=== PATIENT | male | born 1960 | race Caucasian/White ===

== ENCOUNTER 2019-10-09 08:30 | Outpatient (CLI) | payer BC, SELFPAY ==
--- NOTE | 2019-10-09 08:41 | XR_ITS ---
WS: [id number] PROCEDURE: XR chest 2V* [id number] CLINICAL INFORMATION: COUGH,DYSPNEA COMPARISON: None. FINDINGS: Heart: Normal cardiac silhouette. Lungs: Moderate chronic emphysematous changes. Small right pleural effusion with slight atelectasis r ight lung base. Recommend correlation for right lower lobe pneumonia. Recommend follow-up to resoluti on. This can be further evaluated with chest CT. Mild interstitial thickening right lung likely due t o edema. Left lung is well aerated. Bones: Normal visualized bony structures. XR/XR chest 2V* [id number] IMPRESSION: 1. Small right pleural effusion with slight atelectasis right lung base. 2. Correlation for right lower lobe pneumonia. This can be further evaluated w ith chest CT. Recommend follow-up to resolution. 3. Mild interstitial thickening right lung
== END 2019-10-09 08:31 | disposition home or self-care (01) ==
PROVIDERS: Family Provider Family Medicine; PCP Family Medicine; Visit Provider Family Medicine
DX: R05 Cough (principal); R06.02 Shortness of breath; J90 Pleural effusion, not elsewhere classified; J98.11 Atelectasis; J18.9 Pneumonia, unspecified organism
CPT/HCPCS: 71046

== ENCOUNTER → 2019-10-30 09:53 | Outpatient (BNVA) | payer BC, SELFPAY | PROVIDERS: Family Provider Family Medicine; PCP Family Medicine; Visit Provider Internal Medicine | DX: Z20.828 Contact with and (suspected) exposure to other viral communicable diseases (principal); Z11.59 Encounter for screening for other viral diseases | CPT/HCPCS: 87635 ==

== ENCOUNTER 2019-11-04 09:57 | Outpatient (CLI) | payer BC, SELFPAY ==
--- NOTE | 2019-11-04 11:12 | PFTS_ITS ---
Date of Study:11/04/19 Date of Dictation: MECHANICS: Forced vital capacity (FVC) is reduced. Forced expiratory volume in one second (FEV1) is reduced. FEV1/FVC is normal. FLOW VOLUME LOOP: Narrow. LUNG VOLUMES: Total lung capacity (TLC) is reduced. Residual volume (RV) is normal. DIFFUSING CAPACITY FOR CARBON MONOXIDE: Moderately reduced. INTERPRETATION: The pulmonary function tests are consistent with severe restriction. The presence of severe restriction with relatively reserved residual volume might indicate neuromuscular weakness. However, parenchymal lung disease cannot be ruled out. Lung volumes are consistent with restrictive lung disease. Gas exchange (DLCO) is moderately reduced. MTDD
== END 2019-11-04 09:58 | disposition home or self-care (01) ==
LOC: RT 10:04
PROVIDERS: PCP Family Medicine; Visit Provider Family Medicine
DX: R05 Cough (principal); R06.02 Shortness of breath
CPT/HCPCS: 94010; 94060; 94729

== ENCOUNTER 2019-11-11 16:23 | Outpatient (CLI) | payer BC, SELFPAY ==
--- NOTE | 2019-11-11 18:34 | XR_ITS ---
WS: [id number] PA and lateral chest, 11/11/2019 Clinical Data: Pleural effusion Comparison: PA and lateral chest, 10/09/2019. Findings: There is still a small right pleural effusion. The heart is slightly enlarged. There is int erstitial thickening which may be secondary to pulmonary vascular congestion. No nodules or masses ar e seen. The aortic arch and descending aorta show tortuosity. XR/XR chest 2V* [id number] Impression: 1. No change in small right effusion. 2. No change in interstitial lung thickening. 3. Atherosclerosis.
== END 2019-11-11 16:24 | disposition home or self-care (01) ==
LOC: RAD 16:26
PROVIDERS: PCP Family Medicine; Visit Provider Internal Medicine Pulmonary Disease
DX: J90 Pleural effusion, not elsewhere classified (principal); I70.90 Unspecified atherosclerosis
CPT/HCPCS: 71046

== ENCOUNTER 2019-11-20 11:23 | Outpatient (CLI) | payer BC, SELFPAY ==
--- NOTE | 2019-11-20 11:45 | USCV_ITS ---
Orville Jang Age: 59 Gender: M : 1960 Exam Date: 11/20/2019 11:42 Ordering Phys: Jaylon Marlow MD Technologist: Tram Cisse Exam Location: [facility] [place] Indication: SOB BP: 130 / 70 HR: 76 Rhythm: Sinus Technical Quality: MEASUREMENTS (Male / Female) Normal Values 2D ECHO LV Diastolic Diameter PLAX 3.5 cm 4.2 - 5.9 / 3.9 - 5.3 cm LV Systolic Diameter PLAX 2.5 cm LV Chamber Size 4.3 cm IVS Diastolic Thickness 0.9 cm 0.6 - 1.0 / 0.6 - 0.9 cm IVS Systolic Thickness 1.3 cm LVPW Diastolic Thickness 1.5 cm 0.6 - 1.0 / 0.6 - 0.9 cm LVPW Systolic Thickness 1.8 cm RV Chamber Size 2.5 cm LVOT Diameter 2.0 cm LV Ejection Fraction 2D Teich 56.1 % LV Ejection Fraction MOD 2C 70.2 % LV Ejection Fraction 2C AL 71.4 % LA Diameter 2.7 cm LA Width 3.5 cm LA Height 3.7 cm RA Width 3.4 cm RA Height 3.6 cm Aorta at Sinotubular Diameter 2.9 cm M-MODE LV Diastolic Diameter MM 4.1 cm 4.2 - 5.9 / 3.9 - 5.3 cm LV Systolic Diameter MM 2.8 cm LV Ejection Fraction MM Teich 61.2 % IVS Diastolic Thickness MM 0.8 cm 0.6 - 1.0 / 0.6 - 0.9 cm IVS Systolic Thickness MM 1.5 cm LVPW Diastolic Thickness MM 1.3 cm 0.6 - 1.0 / 0.6 - 0.9 cm LVPW Systolic Thickness MM 1.7 cm RV Diastolic Diameter MM 1.5 cm Aortic Annulus Diameter 3.5 cm LA Ao Ratio MM 0.8 MV E Point Septal Separation 0.6 cm DOPPLER AV Peak Velocity 101.0 cm/s LVOT Peak Velocity 68.0 cm/s AV Area Cont Eq vti 2.4 cm squared AV Area Cont Eq pk 2.2 cm squared MV Area PHT 3.7 cm squared Mitral E to A Ratio 0.8 MV E' Velocity 9.0 cm/s Mitral E to MV E' Ratio 7.0 Mitral E to LV E' Lateral Ratio 7.4 Mitral E to LV E' Septal Ratio 6.8 TR Peak Velocity 156.0 cm/s TR Peak Gradient 9.7 mmHg TR Mean Velocity 111.6 cm/s TR Mean Gradient 5.7 mmHg TR Velocity Time Integral 42.8 cm TV Peak E Velocity 53.0 cm/s Right Atrial Pressure 3.0 mmHg Pulmonary Artery Systolic Pressu 12.7 mmHg PV Peak Velocity 51.0 cm/s RV Acceleration Time 0.1 s RV Ejection Time 0.4 s RV AcT/ET 0.3 FINDINGS Left Ventricle Normal left ventricular size and wall thickness. LV systolic function is borderline reduced with EF of 45 to 50%. Mild global hypokinesis is noted. Normal left ventricular wall thickness. Grade 1 diastolic dysfunction is present. Right Ventricle The right ventricle is normal in size and function. Right Atrium The right atrium is normal in size. Left Atrium The left atrium is normal in size. Mitral Valve Structurally normal mitral valve without significant stenosis or prolapse. There is no mitral regurgitation. Aortic Valve Structurally normal aortic valve without significant sclerosis or stenosis. There is no aortic regurgitation. Tricuspid Valve Structurally normal tricuspid valve without significant stenosis or regurgitation. Insufficient TR jet to calculate RVSP. IVC is not well-visualized. Pulmonic Valve Structurally normal pulmonic valve without significant stenosis. There is mild pulmonic regurgitation. Pericardium Normal pericardium without effusion. Aorta Normal ascending aorta dimension. CONCLUSIONS This is technically limited study. Grossly LV systolic function is borderline reduced with EF of 45 to 50%. Grade 1 diastolic dysfunction is present. Mitral and aortic valves are normal. Clarence Shields MD (Electronically Signed) Final Date: 25 November 2019 11:45 S
--- NOTE | 2019-11-20 13:00 | CTR_ITS ---
PROCEDURE INFORMATION: Exam: CT Chest Without Contrast Exam date and time: 11/20/2019 11:28 AM Age: 59 years old Clinical indication: Shortness of breath; Patient HX: Exertional SOB for months; Additional info: Rule out interstitial lung disease TECHNIQUE: Imaging protocol: Computed tomography of the chest without contrast. Radiation optimization: All CT scans at this facility use at least one of these dose optimization techniques: automated exposure control; mA and/or kV adjustment per patient size (includes targeted exams where dose is matched to clinical indication); or iterative reconstruction. COMPARISON: CR XR chest 2V* [id number] 11/11/2019 6:43 PM RADIATION DOSE METRICS: Total DLP (mGy-cm): 259.99 FINDINGS: Lungs: Predominantly peripheral reticulonodular opacities throughout both lungs. Appearance nonspecific and differential diagnosis is extensive including some type of interstitial pneumonitis/atypical pneumonia, drug induced pulmonary disease, connective tissue disorders such as scleroderma, idiopathic pulmonary hemosiderosis, sarcoidosis, histiocytosis X, and lymphangitic metastases if history of malignancy. Areas of chronic bronchiectasis in the lung bases (right greater than left). Pleural space: Unremarkable. No pneumothorax. No pleural effusion. Heart: Unremarkable. No cardiomegaly. No pericardial effusion. Aorta: Unremarkable. No aortic aneurysm. Lymph nodes: Several 1.2 cm or smaller mediastinal lymph nodes, nonspecific. Bones/joints: Unremarkable. No acute fracture. Soft tissues: Unremarkable. CT/CT chest wo con [id number] IMPRESSION: 1.) Predominantly peripheral reticulonodular opacities throughout both lungs as discussed above. 2.) Areas of chronic bronchiectasis in the lung bases. Radiation Dose CTDIVOL = (mGy): DLP = 259.99 (mGy-cm)
== END 2019-11-20 11:24 | disposition home or self-care (01) ==
LOC: US 11:27
PROVIDERS: PCP Family Medicine; Visit Provider Internal Medicine Pulmonary Disease
DX: R06.02 Shortness of breath (principal); G47.33 Obstructive sleep apnea (adult) (pediatric); J98.4 Other disorders of lung; J47.9 Bronchiectasis, uncomplicated; I51.81 Takotsubo syndrome
CPT/HCPCS: 71250; 93306

== ENCOUNTER 2019-11-20 11:28 | Outpatient (CLI) | payer BC, SELFPAY ==
[2019-11-20 12:40] LABS: Basophils % 0.4 %; Eosinophils # 0.1 10^3/uL (0.0-0.8); Hematocrit 43.4 % (42.0-52.0); Hemoglobin 14.3 g/dL (11.7-16.6); Lymphocytes # 1.8 10^3/uL (0.8-4.8); Lymphocytes % 25.1 %; Mean Corpuscular HGB Conc 32.9 g/dL (30.0-36.0); Mean Corpuscular Hemoglobin 29.8 pg (28.0-34.0); Mean Corpuscular Volume 90.4 fL (80-94); Mean Platelet Volume 9.3 fL (7.4-10.4); Monocytes # 0.5 10^3/uL (0.2-0.9); Monocytes % 6.5 %; Neutrophils # 4.67 10^3/uL (1.8-7.7); Neutrophils % 65.7 %; Nucleated Red Blood Cells % 0 %; Platelet Count 216 10^3/cmm (130-400); Red Cell Distribution Width 13.2 % (12.1-15.1); White Blood Count 7.1 10^3/uL (4.0-10.0)
[2019-11-20 13:05] LABS: Creatine Phosphokinase 101 U/L (39-308); Thyroid Stimulating Hormone 0.71 uIU/mL (0.27-4.20)
[2019-11-20 13:20] LABS: C Reactive Protein 5.1 mg/L (0.0-4.9)
[2019-11-20 13:48] LABS: Erythrocyte Sedimentation Rate 38 mm/hr (0-10)
[2019-11-23 13:32] LABS: Anti-Nuclear Antibody Screen NEGATIVE (NEGATIVE)
[2019-11-23 15:58] LABS: Cyclic Citrullinated Peptide <16 UNITS
[2019-11-24 12:18] LABS: SCL 70 <1.0 NEG AI (<1.0 NEG); SS A Ro Sjogrens Antibody <1.0 NEG AI (<1.0 NEG); SS-B/LA IGG <1.0 NEG AI (<1.0 NEG)
[2019-11-24 15:12] LABS: Acetylcholine Recept Modulatin 23
== END 2019-11-20 11:29 | disposition home or self-care (01) ==
LOC: LAB 11:31
PROVIDERS: PCP Family Medicine; Visit Provider Internal Medicine Pulmonary Disease
DX: J98.4 Other disorders of lung (principal); G47.33 Obstructive sleep apnea (adult) (pediatric); J90 Pleural effusion, not elsewhere classified; R06.02 Shortness of breath
CPT/HCPCS: 36415; 82085; 82550; 83516; 84443; 85025; 85651; 86038; 86140; 86235; 86431

== ENCOUNTER 2019-11-25 12:00 | Outpatient (CLI) | payer BC, SELFPAY | END 2019-11-25 12:01 | disposition home or self-care (01) | LOC: SLEEP 11-26 09:33 | PROVIDERS: PCP Family Medicine; Visit Provider Internal Medicine Critical Care Medicine | DX: G47.33 Obstructive sleep apnea (adult) (pediatric) (principal) | CPT/HCPCS: G0399 ==

== ENCOUNTER → 2019-12-01 10:17 | Outpatient (BNVA) | payer BC, SELFPAY | PROVIDERS: PCP Family Medicine; Visit Provider Internal Medicine Critical Care Medicine | DX: Z11.59 Encounter for screening for other viral diseases (principal) | CPT/HCPCS: 87635 ==

== ENCOUNTER 2019-12-04 06:26 | Day surgery (SDC) | payer BC, SELFPAY ==
[2019-12-03 10:49] VITALS: BMI 28.8
[2019-12-04 06:34] VITALS: BP 157/103; PULSE 109; RESP 18; TEMP 36.4; O2SAT 91
[2019-12-04] MEDS: sodium chloride 0.9% 1,000 ML 30 ML IV (07:04)
[2019-12-04 07:11] LABS: Glucose Point of Care 284 mg/dL (70-110)
--- NOTE | 2019-12-04 07:42 | SC_ITS ---
WS: [id number] INTRAOPERATIVE TECHNIQUE: 2 Spot fluoroscopic images for intraoperative purposes. FLUOROSCOPY TIME: 1.9 seconds CLINICAL INFORMATION: intra-op COMPARISON: None. FINDINGS: Images obtained for intraoperative bronchoscopy. SC/C-arm FL for Bronchoscopy IMPRESSION: Images obtained for intraoperative purposes.
--- NOTE | 2019-12-04 07:54 | W.PM.OPSUD ---
Surgery/Procedure H&P Update DATE OF PROCEDURE: December 04, 2019 DATE H&P PERFORMED: 11/23/19 H&P UPDATE INFORMATION: I have reviewed H&P completed within last 30 days, I have examined patient prior to procedure and No changes to prior documentation PREOP DIAGNOSIS: Interstitial lung disease PLANNED PROCEDURE: Bronchoscopy with inspection of the airway, bronchoalveolar lavage, transbronchial cryo biopsies Operation Date: 12/04/19 08:00 Proposed Procedures p Bronchoscopy w/ cryotherapy(Not Applicable) - Joe Garcia MD
--- NOTE | 2019-12-04 07:57 | ANES.PREANE2 ---
Pre-Anesthetic Assessment Pre-Anesthetic Assessment: Height/Weight: Height 1.75 m Weight 88.451 kg Temp Pulse Resp BP Pulse Ox 97.5 F L 109 H 18 157/103 91 12/04/19 06:34 12/04/19 06:34 12/04/19 06:34 12/04/19 06:34 12/04/19 06:34 Preop Diagnosis: Interstitial lung disease Proposed Procedure: Operation Date: 12/04/19 08:00 Proposed Procedures p Bronchoscopy w/ cryotherapy(Not Applicable) - Joe Garcia MD Familial anesthetic complications: none Was Beta Sylvester taken within 24 hours: N/A Last intake: Intake Last Liquid Date 12/03/19 Last Liquid Time 22:00 Last Solid Date 12/03/19 Last Solid Time 18:00 Social: Social History: No alcohol and No tobacco Exam: Pre-Anes Outpt Exam: alert, oriented x 3, clear to auscultation bilaterally and regular rate & rhythm Airway: Submandibular: WNL Cervical ROM: WNL MP: 2 Dentition: Chipped Pulmonary: Pulmonary: MILNER and Sleep apnea Comments: restrictive lung disease CV/HEM: CV/HEM: None reported : : None reported Hepatic: Hepatic: None reported GI: GI: None reported Metabolic: Metabolic: DM (diet controlled) Musc/skel: Musc/skel: None reported Neuropsych: Neuropsych: None reported Anesthetic Plan: ASA status: 2 Anesthesia: General Risk of > 500 ml blood loss (7ml/kg in children): No Meds/Allergies Current Medications: Current Medications Generic Name Dose Route Start Last Admin Trade Name Freq PRN Reason Stop Dose Admin Sodium Chloride 1,000 mls @ 30 ml s/hr 12/04/19 06:30 12/04/19 07:04 Sodium Chloride 0.9% IV 12/05/19 06:29 30 mls/hr .Q24H MAGDALENA Administration PFSH Anesthesia PFSH: Medical History (Updated 11/23/19 @ 09:57 by oJe Garcia MD) Hypertension GILBERT (obstructive sleep apnea) Pleural effusion Type 2 diabetes mellitus Surgical History (Updated 11/23/19 @ 09:57 by Joe Garcia MD) H/O elbow surgery History of ankle surgery Family History Father CAD (coronary artery disease) Cancer prostate Sister Cancer Social History Smoking and tobacco status: never smoked Second hand smoke exposure: No Alcohol intake: current Alcohol intake frequency: holidays/special occasions only Lives independently: Yes Household members: spouse Housing: House Marital status: Current occupational status: employed History of recent travel: No Current gender identity: Male Data Anesthesia Other Labs: Laboratory Results - last 48 hr 12/04/19 07:05 POC Glucose 284 Cardiac Studies: No Data to Display
[2019-12-04] MEDS: lidocaine 1% INJ 20 mL XX (08:23)
--- NOTE | 2019-12-04 08:28 | SUR.OPER ---
s/o updated of surgical status
[2019-12-04] MEDS: EPINEPHrine 1 mg/mL INJ XX (08:59)
--- NOTE | 2019-12-04 09:35 | SUR.OPER ---
S/O UPDATED OF SURGICAL STATUS
--- NOTE | 2019-12-04 09:48 | XR_ITS ---
WS: [id number] CHEST XRAY TECHNIQUE: Portable chest. CLINICAL INFORMATION: POST OP COMPARISON: None. FINDINGS: Shallow inspiration. Heart: Normal cardiac silhouette. Lungs: Diffuse bilateral pulmonary infiltrates similar to November 11, 2019. Tiny bilateral pleural effusions. No focal consolidation. No pneumothorax. Bones: Normal visualized bony structures. XR/XR chest 1V portable [id number] IMPRESSION: 1. Shallow inspiration with diffuse bilateral pulmonary infiltrates similar to November 11, 2019. 2. Trace bilateral pleural effusions. 3. No pneumothorax.
[2019-12-04 09:56] VITALS: BP 132/77; PULSE 108; RESP 18; TEMP 36.5; O2SAT 97
[2019-12-04 10:10] VITALS: PULSE 98; RESP 18; O2SAT 97
--- NOTE | 2019-12-04 10:10 | PM.OP ---
Operative Report Date of procedure: December 04, 2019 Pre-op Diagnosis: Interstitial lung disease Post-op diagnosis: same Brief History: 59-year-old gentleman with interstitial lung disease coming in for bronchoscopic evaluation Procedure: Name of the procedure: Bronchoscopy with bronchoalveolar lavage, transbronchial cryo biopsies and control of bleeding. Indication: Interstitial lung disease Anesthesia: General anesthesia Local anesthesia: The michelle and the right and left mainstem bronchus were anesthetized with 1% lidocaine, 3 mL Description of the procedure: The procedure including the risks were explained to the patient and consent was obtained. He was brought to the OR and underwent endotracheal intubation for general anesthesia. The bronchoscope was then introduced through the endotracheal tube. Lower trachea appeared normal. There was mild mucus throughout the airways. In a systematic manner the right and left lung were then examined. The bronchoscope was introduced into the right mainstem bronchus. The right upper lobe, middle lobe and lower lobe were examined up to the third subsegmental level. No endobronchial lesions were observed. The bronchoscope was then introduced into the left mainstem bronchus. The left upper lobe lingula and lower lobe bronchi were examined up to the third subsegmental level. There were no abnormalities. Bronchoalveolar lavage was performed from the lateral segment of the right middle lobe. 60 cc was introduced fluid return was 30 mL. The fluid was clear. The bronchoalveolar lavage sample was sent for cell count and differential, Gram stain and culture, fungal stain culture, AFB stain and culture. Transbronchial biopsies were obtained from the lateral segment of right middle lobe and right lower lobe. Complications: There is no immediate complications. No significant bleeding was observed. Chest x-ray: Chest x-ray did not reveal any evidence of pneumothorax.
[2019-12-04 10:40] VITALS: BP 128/85; PULSE 95; RESP 18; TEMP 36.5; O2SAT 97
[2019-12-04 10:47] VITALS: BP 117/80; PULSE 101; RESP 18; TEMP 36.6; O2SAT 93
[2019-12-04 10:57] LABS: Apprearance, Bronch Wash Clear (CLEAR); Color, Bronc Wash Colorless
[2019-12-04 10:58] LABS: Bronch Source Right Middle Lobe; PATH Referral Yes
[2019-12-04 11:19] VITALS: BP 128/83; PULSE 97; RESP 18; O2SAT 91
--- NOTE | 2019-12-04 11:20 | ANE.PACU2 ---
Inpatient post-anesthesia follow up: Airway intact: Yes Vital signs: Temperature 97.8 F Pulse Rate 97 Respiratory Rate 18 Blood Pressure 128/83 Pulse Oximetry 91 Oxygen Delivery Me thod Room Air Oxygen Flow Rate 2 Fraction of Inspir ed Oxygen Hydration adequate: Yes Nausea and vomiting: No Pain level: 1 Mental status: Baseline Additional Comments: Patient had inspiroatory stridor in Phase I which resolved after he calmed down and had racemic epi. states he actually has these stridorous episodes at home. Informed patient if these were to worsen or if be different than his baseline episodes he should go to ER
[2019-12-04 12:48] LABS: Total Cells Counted Bronch 302
[2020-03-14 11:43] LABS: Miscellaneous Test See Scanned Lab Rpt
== END 2019-12-04 11:28 | disposition home or self-care (01) ==
PROVIDERS: PCP Family Medicine; Visit Provider Internal Medicine Critical Care Medicine
PROC: 0BJ08ZZ Inspection of Tracheobronchial Tree, Via Natural or Artificial Opening Endoscopic (ICD-10-PCS; CPT 31622; principal; 2019-12-04 08:00)
DX: J84.9 Interstitial pulmonary disease, unspecified (principal); E11.9 Type 2 diabetes mellitus without complications; G47.33 Obstructive sleep apnea (adult) (pediatric); I10 Essential (primary) hypertension
CPT/HCPCS: 12345; 31625; 36416; 71045; 76000; 80500; 82962; 87015; 87070; 87102; 87116; 87205; 87206; 87801; 88305; 89050; 94640; J0171; J0330; J1100; J2405; J2704; J2710; J3010; J3490; J3535; J7030

== ENCOUNTER 2019-12-12 15:32 | Emergency (ER) | payer BC, SELFPAY ==
[2019-12-12 16:12] VITALS: BP 132/90; PULSE 94; RESP 16; TEMP 36.7; O2SAT 94; BMI 28.0
--- NOTE | 2019-12-12 17:51 | W.ED.SOB ---
Documented by User: Joel Pacheco DO 12/14/19 06:28 HPI - SOB/Dyspnea General: Chief Complaint: Shortness of Breath/Dyspnea Stated Complaint: SOB, COVID s/s Time Seen by Provider: 12/12/19 15:34 History of Present Illness: HPI Narrative: 59 yo male presents with complaint with dyspnea. He has a sat monitor at home he notices while at rest his sats remained good but when he gets up and walks around he immediately gets very short of breath. He denies any productive cough he denies any fever this been going on for several months now. He recently had a bronchoscopy and was worked up by Dr. Garcia. Bronchoscopy evidently showed a fungal infection. Thought to be from use of CPAP. He is not had any hemoptysis he denies any chest pain. He is not currently on oxygen at home no sinus congestion no nausea vomiting or diarrhea. MD elicited complaint: shortness of breath and cough Onset (ago): month(s) Context: recent illness Timing: constant Severity: severe Exacerbating factors: exertion Relieving factors: rest Associated symptoms: Reports cough; Deny abdominal pain, chest congestion, chest pain, diaphoresis, dizziness, extremity pain, fever(s), hemoptysis, lightheadedness, myalgias, nausea, orthopnea, palpitations, paresthesias, polydipsia, polyuria, rash, sense of impending doom, syncope or vomiting Treatment prior to arrival: none Review of Systems Const: Denies: fever(s) or diaphoresis ENMT: Denies: throat pain, ear or mastoid pain, nasal discharge or nasal congestion Card: Denies: chest pain, palpitations, lightheadedness, syncope or orthopnea Resp: Denies: hemoptysis or chest congestion GI: Denies: abdominal pain, nausea or vomiting : Denies: flank pain, dysuria, urinary frequency or urinary urgency Musc: Denies: extremity pain Skin/Breast: Denies: rash or pruritus Neuro: Denies: dizziness Endo: Denies: polyuria or polydipsia PFSH ED PFSH: Medical History Hypertension GILBERT (obstructive sleep apnea) Pleural effusion Type 2 diabetes mellitus Surgical History H/O elbow surgery History of ankle surgery Family History Father CAD (coronary artery disease) Cancer prostate Sister Cancer Social History Smoking and tobacco status: never smoked Second hand smoke exposure: No Alcohol intake: current Alcohol intake frequency: holidays/special occasions only Lives independently: Yes Household members: spouse Housing: House Marital status: Current occupational status: employed History of recent travel: No Current gender identity: Male Physical Exam Const: COMMON NORMALS: no acute distress GENERAL APPEARANCE: cooperative and comfortable ORIENTATION/CONSCIOUSNESS: Yes awake, Yes oriented to person, Yes oriented to place and Yes oriented to time HENMT: COMMON NORMALS: normocephalic, atraumatic and hearing grossly normal bilaterally HEAD & SCALP: normocephalic and atraumatic Eye: COMMON NORMALS: Equal, round and reactive pupils present, EOMs intact bilaterally, conjunctivae normal and no scleral icterus CONJUNCTIVA: Yes conjunctivae normal PUPIL: Yes Equal, round and reactive pupils present Neck/C-Spine: COMMON NORMALS: no JVD Resp: COMMON NORMALS: normal respiratory effort, No retractions, No use of accessory muscles and clear to auscultation bilaterally AUSCULTATION: clear to auscultation bilaterally Cardio: COMMON NORMALS: no JVD, regular rate, regular rhythm and No murmurs present (Cardio) RATE: regular rate RHYTHM: regular rhythm GI: COMMON NORMALS: Soft to palpation and No hepatosplenomegaly present AUSCULTATION: Yes normoactive bowel sounds PALPATION: Yes Soft to palpation, No Tenderness to palpation present (GI), No Guarding due to palpation present (GI) and Yes No hepatosplenomegaly present Extremity: COMMON NORMALS: normal to inspection, capillary refill normal, no clubbing, cyanosis or edema, no calf tenderness and no pedal edema Neuro: SENSORIUM/ORIENTATION: Yes oriented to person, Yes oriented to place and Yes oriented to time Skin: COMMON NORMALS: no rashes or lesions noted GENERAL SKIN EXAM: no rashes or lesions noted Course Vital Signs: Vital signs: Vital Signs Temperature 98.0 F 12/12/19 16:12 Pulse Rate 94 12/12/19 16:12 Respiratory Rate 18 12/12/19 21:56 Blood Pressure 132/90 12/12/19 16:12 Pulse Oximetry 92 12/12/19 20:46 MDM - SOB/Dyspnea MDM Narrative: Medical decision making narrative: Care signed out to Dr. Oakley at change of shift see his note for definitive diagnosis and disposition. Lab Data: Labs: Lab Results 12/12/19 12/12/19 12/12/19 Range/Units 19:30 19:30 19:30 WBC 9.5 (4.0-10.0) 10^3/ uL RBC 4.84 (4.1-5.3) 10^6/u L Hgb 14.4 (11.7-16.6) g/dL Hct 43.2 (42.0-52.0) % MCV 89.3 (80-94) fL MCH 29.8 (28.0-34.0) pg MCHC 33.3 (30.0-36.0) g/dL RDW 13.2 (12.1-15.1) % Plt Count 282 (130-400) 10^3/c mm MPV 9.8 (7.4-10.4) fL Neut % (Auto) 67.1 % Lymph % (Auto) 26.1 % [place] % (Auto) 6.2 % Eos % (Auto) 0.0 % Baso % (Auto) 0.1 % Neut # (Auto) 6.37 (1.8-7.7) 10^3/u L Lymph # (Auto) 2.5 (0.8-4.8) 10^3/u L [place] # (Auto) 0.6 (0.2-0.9) 10^3/u L Eos # (Auto) 0.0 (0.0-0.8) 10^3/u L Baso # (Auto) 0.0 (0.0-0.1) 10^3/u L Nucleated RBC % (a uto) 0 % Nucleated RBCs # 0.0 /100WBC Specimen Type Sample Site ABG pH (7.35-7.45) ABG pCO2 (35-45) mmHg ABG pO2 (80.0-100.0) mmH g ABG HCO3 (22-26) mmol/L ABG Base Excess (-2.0-2.0) mmol/ L Sebastián Test Hematocrit (42-52) % Administrative Underwriter ID Sodium 132 L (136-145) mmol/L Potassium 4.8 (3.5-5.1) mmol/L Chloride 97 L (98-107) mmol/L Carbon Dioxide 25 (22-29) mmol/L Anion Gap 14.8 (5-19) BUN 26 H (8-23) mg/dL Creatinine 0.8 (0.7-1.2) mg/dL GFR Calculation 98.3 (90-130) mL/min Glucose 332 H (65-115) mg/dL Calculated Osmolal ity 292 (285-295) mOsm/k g Calcium 9.1 (8.5-10.5) mg/dL Total Bilirubin 0.4 (0.15-1.2) mg/dL AST 15 (0-40) U/L ALT 21 (0-41) U/L Alkaline Phosphata se 71 (40-130) IU/L Creatine Kinase 37 L (39-308) U/L Troponin T Baselin e 7 (0-15) ng/L Total Protein 7.3 (6.6-8.7) g/dL Albumin 4.1 (3.5-5.2) g/dL Globulin 3.2 (1.3-4.6) g/dL SARS-CoV-2 Ag (Rap id) (Negative) 12/12/19 12/12/19 Range/Units 19:30 19:38 WBC (4.0-10.0) 10^3/ uL RBC (4.1-5.3) 10^6/u L Hgb (11.7-16.6) g/dL Hct (42.0-52.0) % MCV (80-94) fL MCH (28.0-34.0) pg MCHC (30.0-36.0) g/dL RDW (12.1-15.1) % Plt Count (130-400) 10^3/c mm MPV (7.4-10.4) fL Neut % (Auto) % Lymph % (Auto) % [place] % (Auto) % Eos % (Auto) % Baso % (Auto) % Neut # (Auto) (1.8-7.7) 10^3/u L Lymph # (Auto) (0.8-4.8) 10^3/u L [place] # (Auto) (0.2-0.9) 10^3/u L Eos # (Auto) (0.0-0.8) 10^3/u L Baso # (Auto) (0.0-0.1) 10^3/u L Nucleated RBC % (a uto) % Nucleated RBCs # /100WBC Specimen Type Arterial Sample Site Radial, left ABG pH 7.44 (7.35-7.45) ABG pCO2 38.5 (35-45) mmHg ABG pO2 70.8 L (80.0-100.0) mmH g ABG HCO3 25.9 (22-26) mmol/L ABG Base Excess 1.7 (-2.0-2.0) mmol/ L Sebastián Test Pos Hematocrit 45.7 (42-52) % Administrative Underwriter ID ellpe Sodium (136-145) mmol/L Potassium (3.5-5.1) mmol/L Chloride (98-107) mmol/L Carbon Dioxide (22-29) mmol/L Anion Gap (5-19) BUN (8-23) mg/dL Creatinine (0.7-1.2) mg/dL GFR Calculation (90-130) mL/min Glucose (65-115) mg/dL Calculated Osmolal ity (285-295) mOsm/k g Calcium (8.5-10.5) mg/dL Total Bilirubin (0.15-1.2) mg/dL AST (0-40) U/L ALT (0-41) U/L Alkaline Phosphata se (40-130) IU/L Creatine Kinase (39-308) U/L Troponin T Baselin e (0-15) ng/L Total Protein (6.6-8.7) g/dL Albumin (3.5-5.2) g/dL Globulin (1.3-4.6) g/dL SARS-CoV-2 Ag (Rap id) Negative (Negative) Discharge Plan Discharge Patient Disposition: Home Clinical Impression: Restrictive lung disease, Interstitial lung disease Community acquired pneumonia Qualifiers: Laterality: unspecified laterality Qualified Code(s): J18.9 - Pneumonia, unspecified organism Condition: Stable Prescriptions: New cefdinir 300 mg capsule 300 mg PO Q12H 10 Days Qty: 20 RF: 0 doxycycline hyclate 100 mg capsule 100 mg PO BID 10 Days Qty: 20 RF: 0 No Action albuterol sulfate [ProAir HFA] 90 mcg/actuation HFA aerosol inhaler 2 puff INHALATION Q6H PRN (Reason: Shortness Of Breath) RF: 0 prednisone 50 mg tablet 50 mg PO DAILY 14 Days Qty: 14 RF: 0 amoxicillin-pot clavulanate [Augmentin] 875-125 mg tablet 1 tab PO Q12H 7 Days Qty: 14 RF: 0 Lantus Solostar U-100 Insulin 100 unit/mL (3 mL) insulin pen 15 unit SUBCUT DAILY Qty: 15 RF: 0 (DME) pen needle, diabetic [Comfort EZ Pen [place]] 29 gauge x 1/2 needle See Rx Instructions .ROUTE .MEDSUPPLY Qty: 100 RF: 0 Airborne Gummy 1 cap PO TID RF: 0 Discharge Orders: Discharge Order (Routine); Ordered 12/12/19 Ordered By: Jonna Mejía Other Ambulatory Orders: DME: Oxygen (Order) Location: None Selected Ordered By: Jonna Mejía Referrals: Kristian Ramey DO [Primary Care Provider] - 1-3 days Joe Garcia MD [Physician] - 1-3 days Discharge Diet: Advance as tolerated Discharge Activity: Increase activity as tolerated Patient Instructions: Community-acquired Pneumonia (ED) Activity Restrictions/Additional Instructions: Please return to the ER immediately for any of the signs or symptoms listed on your discharge instruction sheets, worsening/changing of your symptoms, you are not getting better as quickly as expected, or for ANY other cause or concerns. Use your oxygen at all times and be certain to follow-up with Dr. Garcia in his office as soon as possible for recheck. Discharge Date/Time: 12/12/19 21:56 Sign Out Sign Out Data: Patient Sign Out occurred on 12/12/19 at 18:54. Patient's care was discussed, and care was transferred from to Jonna Mejía. Coding Level of Care Code ED Airline Station Agent for Chg Fwd Documented by User: Jonna Mejía 12/13/19 02:04 HPI - SOB/Dyspnea General: Chief Complaint: Shortness of Breath/Dyspnea Stated Complaint: SOB, COVID s/s Time Seen by Provider: 12/12/19 15:34 PFSH ED PFSH: Medical History Hypertension GILBERT (obstructive sleep apnea) Pleural effusion Type 2 diabetes mellitus Surgical History H/O elbow surgery History of ankle surgery Family History Father CAD (coronary artery disease) Cancer prostate Sister Cancer Social History Smoking and tobacco status: never smoked Second hand smoke exposure: No Alcohol intake: current Alcohol intake frequency: holidays/special occasions only Lives independently: Yes Household members: spouse Housing: House Marital status: Current occupational status: employed History of recent travel: No Current gender identity: Male Course Vital Signs: Vital signs: Vital Signs Temperature 98.0 F 12/12/19 16:12 Pulse Rate 94 12/12/19 16:12 Respiratory Rate 18 12/12/19 21:56 Blood Pressure 132/90 12/12/19 16:12 Pulse Oximetry 92 12/12/19 20:46 MDM - SOB/Dyspnea MDM Narrative: Medical decision making narrative: 1899 -Case inherited by me at change of shift from Dr. Pacheco. Please see his note for his history, physical exam and medical decision-making notes. Patient endorsed to me as having low oxygen saturations at home in the 80s. Here the patient had a pulse ox in the 90s. Patient recently had a bronchoscopy that had a fungal infection and had been placed on antifungals. Labs still pending at this time. 2129 -the patient is qualified for home O2 through home O2 eval. He does not have a fever or elevated white count but because of his unchanging chest x-ray I will add a course of doxycycline. The patient is an established patient with Dr. Garcia and agrees to follow-up with him for recheck. Lab Data: Labs: Lab Results 10/12/2112/12/19 12/12/19 Range/Units 19:30 19:30 19:30 WBC 9.5 (4.0-10.0) 10^3/ uL RBC 4.84 (4.1-5.3) 10^6/u L Hgb 14.4 (11.7-16.6) g/dL Hct 43.2 (42.0-52.0) % MCV 89.3 (80-94) fL MCH 29.8 (28.0-34.0) pg MCHC 33.3 (30.0-36.0) g/dL RDW 13.2 (12.1-15.1) % Plt Count 282 (130-400) 10^3/c mm MPV 9.8 (7.4-10.4) fL Neut % (Auto) 67.1 % Lymph % (Auto) 26.1 % [place] % (Auto) 6.2 % Eos % (Auto) 0.0 % Baso % (Auto) 0.1 % Neut # (Auto) 6.37 (1.8-7.7) 10^3/u L Lymph # (Auto) 2.5 (0.8-4.8) 10^3/u L [place] # (Auto) 0.6 (0.2-0.9) 10^3/u L Eos # (Auto) 0.0 (0.0-0.8) 10^3/u L Baso # (Auto) 0.0 (0.0-0.1) 10^3/u L Nucleated RBC % (a uto) 0 % Nucleated RBCs # 0.0 /100WBC Specimen Type Sample Site ABG pH (7.35-7.45) ABG pCO2 (35-45) mmHg ABG pO2 (80.0-100.0) mmH g ABG HCO3 (22-26) mmol/L ABG Base Excess (-2.0-2.0) mmol/ L Sebastián Test Hematocrit (42-52) % Administrative Underwriter ID Sodium 132 L (136-145) mmol/L Potassium 4.8 (3.5-5.1) mmol/L Chloride 97 L (98-107) mmol/L Carbon Dioxide 25 (22-29) mmol/L Anion Gap 14.8 (5-19) BUN 26 H (8-23) mg/dL Creatinine 0.8 (0.7-1.2) mg/dL GFR Calculation 98.3 (90-130) mL/min Glucose 332 H (65-115) mg/dL Calculated Osmolal ity 292 (285-295) mOsm/k g Calcium 9.1 (8.5-10.5) mg/dL Total Bilirubin 0.4 (0.15-1.2) mg/dL AST 15 (0-40) U/L ALT 21 (0-41) U/L Alkaline Phosphata se 71 (40-130) IU/L Creatine Kinase 37 L (39-308) U/L Troponin T Baselin e 7 (0-15) ng/L Total Protein 7.3 (6.6-8.7) g/dL Albumin 4.1 (3.5-5.2) g/dL Globulin 3.2 (1.3-4.6) g/dL SARS-CoV-2 Ag (Rap id) (Negative) 12/12/19 12/12/19 Range/Units 19:30 19:38 WBC (4.0-10.0) 10^3/ uL RBC (4.1-5.3) 10^6/u L Hgb (11.7-16.6) g/dL Hct (42.0-52.0) % MCV (80-94) fL MCH (28.0-34.0) pg MCHC (30.0-36.0) g/dL RDW (12.1-15.1) % Plt Count (130-400) 10^3/c mm MPV (7.4-10.4) fL Neut % (Auto) % Lymph % (Auto) % [place] % (Auto) % Eos % (Auto) % Baso % (Auto) % Neut # (Auto) (1.8-7.7) 10^3/u L Lymph # (Auto) (0.8-4.8) 10^3/u L [place] # (Auto) (0.2-0.9) 10^3/u L Eos # (Auto) (0.0-0.8) 10^3/u L Baso # (Auto) (0.0-0.1) 10^3/u L Nucleated RBC % (a uto) % Nucleated RBCs # /100WBC Specimen Type Arterial Sample Site Radial, left ABG pH 7.44 (7.35-7.45) ABG pCO2 38.5 (35-45) mmHg ABG pO2 70.8 L (80.0-100.0) mmH g ABG HCO3 25.9 (22-26) mmol/L ABG Base Excess 1.7 (-2.0-2.0) mmol/ L Sebastián Test Pos Hematocrit 45.7 (42-52) % Administrative Underwriter ID ellpe Sodium (136-145) mmol/L Potassium (3.5-5.1) mmol/L Chloride (98-107) mmol/L Carbon Dioxide (22-29) mmol/L Anion Gap (5-19) BUN (8-23) mg/dL Creatinine (0.7-1.2) mg/dL GFR Calculation (90-130) mL/min Glucose (65-115) mg/dL Calculated Osmolal ity (285-295) mOsm/k g Calcium (8.5-10.5) mg/dL Total Bilirubin (0.15-1.2) mg/dL AST (0-40) U/L ALT (0-41) U/L Alkaline Phosphata se (40-130) IU/L Creatine Kinase (39-308) U/L Troponin T Baselin e (0-15) ng/L Total Protein (6.6-8.7) g/dL Albumin (3.5-5.2) g/dL Globulin (1.3-4.6) g/dL SARS-CoV-2 Ag (Rap id) Negative (Negative) Discharge Plan Discharge Patient Disposition: Home Clinical Impression: Restrictive lung disease, Interstitial lung disease Community acquired pneumonia Qualifiers: Laterality: unspecified laterality Qualified Code(s): J18.9 - Pneumonia, unspecified organism Condition: Stable Prescriptions: New cefdinir 300 mg capsule 300 mg PO Q12H 10 Days Qty: 20 RF: 0 doxycycline hyclate 100 mg capsule 100 mg PO BID 10 Days Qty: 20 RF: 0 No Action albuterol sulfate [ProAir HFA] 90 mcg/actuation HFA aerosol inhaler 2 puff INHALATION Q6H PRN (Reason: Shortness Of Breath) RF: 0 prednisone 50 mg tablet 50 mg PO DAILY 14 Days Qty: 14 RF: 0 amoxicillin-pot clavulanate [Augmentin] 875-125 mg tablet 1 tab PO Q12H 7 Days Qty: 14 RF: 0 Lantus Solostar U-100 Insulin 100 unit/mL (3 mL) insulin pen 15 unit SUBCUT DAILY Qty: 15 RF: 0 (DME) pen needle, diabetic [Comfort EZ Pen [place]] 29 gauge x 1/2 needle See Rx Instructions .ROUTE .MEDSUPPLY Qty: 100 RF: 0 Airborne Gummy 1 cap PO TID RF: 0 Discharge Orders: Discharge Order (Routine); Ordered 12/12/19 Ordered By: Jonna Mejía Other Ambulatory Orders: DME: Oxygen (Order) Location: None Selected Ordered By: Jonna Mejía Referrals: Kristian Ramey DO [Primary Care Provider] - 1-3 days Joe Garcia MD [Physician] - 1-3 days Discharge Diet: Advance as tolerated Discharge Activity: Increase activity as tolerated Patient Instructions: Community-acquired Pneumonia (ED) Activity Restrictions/Additional Instructions: Please return to the ER immediately for any of the signs or symptoms listed on your discharge instruction sheets, worsening/changing of your symptoms, you are not getting better as quickly as expected, or for ANY other cause or concerns. Use your oxygen at all times and be certain to follow-up with Dr. Garcia in his office as soon as possible for recheck. Discharge Date/Time: 12/12/19 21:56 Sign Out Sign Out Data: Patient Sign Out occurred on 12/12/19 at 18:54. Patient's care was discussed, and care was transferred from to Jonna Mejía. Coding Level of Care Code ED Airline Station Agent for Susana Palacios
--- NOTE | 2019-12-12 18:36 | XRR_ITS ---
PROCEDURE INFORMATION: Exam: XR Chest, 1 View Exam date and time: 12/12/2019 6:49 PM Age: 59 years old Clinical indication: Shortness of breath; Patient HX: C/O SOB; Additional info: Dyspnea/cough TECHNIQUE: Imaging protocol: XR of the chest Views: 1 view. COMPARISON: CR XR chest 1V portable [id number] 12/04/2019 10:13 AM FINDINGS: Lungs: There is unchanged hyperinflation with probable fibrosis especially in the periphery of the lungs and both lung bases unchanged since the prior exam. Peripheral ground-glass/airspace opacities that may reflect fibrosis or infiltrates are unchanged. No new or increasing airspace consolidation. Pulmonary vascularity is within normal limits. Pleural space: Unremarkable. No pleural effusion. No pneumothorax. Heart/Mediastinum: There is borderline cardiomegaly. Bones/joints: No acute abnormality. XR/XR chest 1V portable [id number] IMPRESSION: Peripheral ground-glass/airspace opacities that may reflect fibrosis or infiltrates are unchanged.
[2019-12-12 18:50] VITALS: O2SAT 95
[2019-12-12 19:45] LABS: ABG PCO2 38.5 mmHg (35-45); ABG PH Result 7.44 (7.35-7.45); Arterial Blood Gas Hematocrit 45.7 % (42-52); Base Excess ABG 1.7 mmol/L (-2.0-2.0); Blood Gas Allen Test Pos; Blood Gas Sample Site Radial, left; Blood Gas Sample Type Arterial; HCO3 ABG 25.9 mmol/L (22-26); PO2 ABG 70.8 mmHg (80.0-100.0)
[2019-12-12 19:50] VITALS: RESP 18
[2019-12-12 20:00] VITALS: RESP 18
[2019-12-12 20:15] LABS: Basophils % 0.1 %; Hematocrit 43.2 % (42.0-52.0); Hemoglobin 14.4 g/dL (11.7-16.6); Lymphocytes # 2.5 10^3/uL (0.8-4.8); Lymphocytes % 26.1 %; Mean Corpuscular HGB Conc 33.3 g/dL (30.0-36.0); Mean Corpuscular Hemoglobin 29.8 pg (28.0-34.0); Mean Corpuscular Volume 89.3 fL (80-94); Mean Platelet Volume 9.8 fL (7.4-10.4); Monocytes # 0.6 10^3/uL (0.2-0.9); Monocytes % 6.2 %; Neutrophils # 6.37 10^3/uL (1.8-7.7); Neutrophils % 67.1 %; Nucleated Red Blood Cells % 0 %; Platelet Count 282 10^3/cmm (130-400); Red Blood Count 4.84 10^6/uL (4.1-5.3); Red Cell Distribution Width 13.2 % (12.1-15.1); White Blood Count 9.5 10^3/uL (4.0-10.0)
[2019-12-12 20:17] LABS: Alanine Aminotransferase 21 U/L (0-41); Albumin Level 4.1 g/dL (3.5-5.2); Alkaline Phosphatase 71 IU/L (40-130); Aspartate Amino Transferase 15 U/L (0-40); Blood Urea Nitrogen 26 mg/dL (8-23); Calcium 9.1 mg/dL (8.5-10.5); Carbon Dioxide 25 mmol/L (22-29); Chloride 97 mmol/L (98-107); Creatine Phosphokinase 37 U/L (39-308); Creatinine Clr Calc Pharmacy 105.4612; Globulin 3.2 g/dL (1.3-4.6); Glomerular Filtration Rate 98.3 mL/min (90-130); Glucose 332 mg/dL (65-115); Osmolality Calculated 292 mOsm/kg (285-295); Sodium 132 mmol/L (136-145); Total Bilirubin 0.4 mg/dL (0.15-1.2); Total Protein 7.3 g/dL (6.6-8.7)
[2019-12-12 20:25] LABS: Anion Gap 14.8 (5-19); Potassium 4.8 mmol/L (3.5-5.1)
[2019-12-12 20:26] LABS: SARS Covid-2 Antigen Negative (Negative)
[2019-12-12 20:41] LABS: Troponin(5th) Baseline 7 ng/L (0-15)
[2019-12-12 20:46] VITALS: O2SAT 79; O2SAT 92
[2019-12-12 21:56] VITALS: RESP 18
== END 2019-12-12 21:56 | disposition home or self-care (01) ==
PROVIDERS: Family Medicine; Emergency Provider Emergency Medicine; PCP Family Medicine
DX: J18.9 Pneumonia, unspecified organism (principal); J84.9 Interstitial pulmonary disease, unspecified; Z79.899 Other long term (current) drug therapy; I10 Essential (primary) hypertension; E11.9 Type 2 diabetes mellitus without complications
CPT/HCPCS: 12345; 36600; 71045; 80053; 82550; 82803; 84484; 85025; 87426; 99283; 99284

== ENCOUNTER → 2019-12-14 08:09 | Outpatient (BNVA) | payer BC, SELFPAY | PROVIDERS: PCP Family Medicine; Referring Provider Internal Medicine Critical Care Medicine; Visit Provider Internal Medicine | DX: E09.9 Drug or chemical induced diabetes mellitus without complications (principal); T38.0X5A Adverse effect of glucocorticoids and synthetic analogues, initial encounter; J84.9 Interstitial pulmonary disease, unspecified; Z71.3 Dietary counseling and surveillance | CPT/HCPCS: 99204 ==

== ENCOUNTER 2019-12-14 09:58 | Outpatient (CLI) | payer BC, SELFPAY ==
[2019-12-14 10:48] LABS: Estmated Average Glucose 260; Hemoglobin A1C 10.7 % (4.0-6.0)
== END 2019-12-14 09:59 | disposition home or self-care (01) ==
LOC: LAB 10:02
PROVIDERS: Internal Medicine; PCP Family Medicine; Visit Provider Internal Medicine Critical Care Medicine
DX: E09.9 Drug or chemical induced diabetes mellitus without complications (principal); T38.0X5A Adverse effect of glucocorticoids and synthetic analogues, initial encounter
CPT/HCPCS: 83036

== ENCOUNTER 2020-01-01 07:05 | Outpatient (CLI) | payer BC, SELFPAY ==
[2020-01-01 07:09] VITALS: BMI 27.6
--- NOTE | 2020-01-01 07:11 | ECG_ITS ---
[facility] Test Date: 2020-01-01 Pat Name: Orville Jang Department: Room: Gender: Male Site Safety Representative: : 1960 Requested By: Reksoft Jose Order Number: [id number] Sales MD: MUMTAZ ANDERSON Interpretive Statements NAME OF STUDY: LEXISCAN SESTAMIBI STRESS TEST INDICATION: Chest Pain NOTE: Please note that this is the electrocardiogram portion of the Lexiscan/Sestamibi stress test. The perfusion scan will be documented separately. DATA: Baseline heart rate was 72 beats per minute. Baseline blood pressure was 148/96 millimeters of mercury. Target heart rate was 159. Maximum heart rate achieved was 98. which was 61 % of the predicted target heart rate. Maximum blood pressure was 153/102 millimeters of mercury. The reason for ending the test was completion of the protocol. The patient did not experience any symptoms. ELECTROCARDIOGRAM: BASELINE: Sinus rhythm. Normal axis. Otherwise, no ST-T changes suggestive of ischemia noted. No arrhythmia noted. EXERCISE: After Lexiscan injection, no ST-T changes suggestive of ischemic noted. No arrhythmia noted. 1. EKG not suggestive of ischemia 2. Lexiscan injection unremarkable. 3. Perfusion scan will be documented separately. Electronically Signed On 01-01-2020 17:58:46 CDT by MUMTAZ ANDERSON [id number]
--- NOTE | 2020-01-01 07:12 | NMCV_ITS ---
NM carmita perf SPECT r/s* [id number] Orville Jang Age: 59 Gender: M : 1960 Exam Date: 01/01/2020 07:59 Ordering Phys: Joe Garcia MD Technologist: MAGNO Munson Exam Location: [facility] Indications: CHEST PAIN STRESS TEST Please see separate stress test report in [facility] for full findings IMAGE PROTOCOL Rest/Stress 1 Lexiscan Day Radiopharmaceutical Dose (mCi) Administration Site Administered by Rest: Tc-99m 10.7 IV MAGNO Chan Sestamibi Stress:Tc-99m 32.4 IV MAGNO Munson Sestamibi Rest: 01-Jan-2020 60 Discovery 630 Stress: 01-Jan-2020 30 Discovery 630 0.4mg Lexiscan. Images obtained in supine and prone position. SPECT RESULTS Technical Quality: Excellent Raw Data Analysis: Normal Image Corrections: No attenuation or motion correction applied Summed Stress Score: 2 Summed Rest Score: 2 Summed Difference Score: 0 PERFUSION FINDINGS Medium-sized area of mild to moderate reversibility noted in basal to mid anterior and basal to mid inferior wall suggestive of possible ischemia in LAD and RCA territory. FUNCTIONAL RESULTS (calculated via Gated SPECT) Stress Image LV EF (%): 29 Stress EDV (mL):133 TID: 1.03 Stress ESV (mL):94 Rest Image LV EF (%): 29 FUNCTIONAL FINDINGS: There is global hypokinesis with severely depressed LV function. Estimated ejection fraction is 29% which may not be reliable therefore please refer to echocardiogram. IMPRESSIONS Medium-sized area of mild to moderate reversibility noted in basal to mid anterior and basal to mid inferior wall suggestive of possible ischemia in LAD and RCA territory. Left ventricle function is severely depressed at 29%. There is global hypokinesis. EKG segment will be documented separately. Monica Rivas MD (Electronically Signed) Final Date: 01 January 2020 15:06 S
[2020-01-01] MEDS: regadenoson 0.4 Mg/5 ml Syringe IVP (08:49)
[2020-01-01 09:03] VITALS: BP 149/97; PULSE 87
== END 2020-01-01 07:06 | disposition home or self-care (01) ==
LOC: CDL 07:08
PROVIDERS: PCP Family Medicine; Visit Provider Internal Medicine Critical Care Medicine
DX: R07.89 Other chest pain (principal)
CPT/HCPCS: 78452; 93017; A9500; J2785

== ENCOUNTER 2020-02-01 10:50 | Observation (INO) | payer BC, SELFPAY ==
[2020-02-01] VITALS (11 sets, daily range): BP systolic 116–158; BP diastolic 80–103; PULSE 77–102; RESP 14–28; TEMP 36.5–36.8; O2SAT 91–100; BMI 27.3
--- NOTE | 2020-02-01 11:10 | ECG_ITS ---
[facility] Test Date: 2020-02-01 Pat Name: Orville Jang Department: Room: Gender: Male Watch Electrician: : 1960 Requested By: Maricruz Winter Order Number: [id number] Mónica MD: MUMTAZ ANDERSON Measurements Intervals [place] Rate: 96 P: 51 MT: 144 QRS: -4 QRSD: 95 T: 31 QT: 342 QTc: 433 Interpretive Statements SINUS RHYTHM MODERATE VOLTAGE CRITERIA FOR LVH, CONSIDER NORMAL VARIANT [MEETS CRITERIA IN ONE OF: R(aVL), S(V1), R(V5), R(V5/V6)+S(V1)] No previous ECG available for comparison Electronically Signed On 02-01-2020 17:29:20 MANAGER SCHEDULING by MUMTAZ ANDERSON [id number]
--- NOTE | 2020-02-01 11:11 | XRR_ITS ---
PROCEDURE INFORMATION: Exam: XR Chest, 2 Views Exam date and time: 02/01/2020 11:24 AM Age: 59 years old Clinical indication: Cough and shortness of breath; Type not specified; Patient HX: SOB 3-4 months, cough, chest pain, history of copd; Additional info: Cp TECHNIQUE: Imaging protocol: XR of the chest Views: 2 views. COMPARISON: CR XR chest 1V portable [id number] 12/12/2019 6:28 PM FINDINGS: Lungs: Poor inspiration. Decreased lung volumes. Bilateral interstitial lung disease with a basilar predominance. This appears worse on the left. This could be due to interstitial pneumonitis or edema, possibly acute on chronic lung disease. Pleural space: No pleural effusion or pneumothorax. Heart/Mediastinum: The cardiac silhouette is not enlarged. The mediastinum is unchanged. Bones/joints: No acute osseous abnormality. XR/XR chest 2V* [id number] IMPRESSION: Worsening asymmetric interstitial lung disease. This might be due to acute interstitial pneumonitis or edema superimposed upon chronic interstitial lung disease.
--- NOTE | 2020-02-01 11:42 | W.ED.CHESTPA ---
HPI - Chest Pain General: Chief Complaint: Chest Pain Stated Complaint: chest pain Time Seen by Provider: 02/01/20 11:12 History of Present Illness: HPI narrative: This patient is a 59-year-old male who presents with chest pain. He has been having chest pain off and on for about a month and also has been having shortness of breath for several months. He has been worked up for the shortness of breath but does not have a clear diagnosis. He has had CTs and biopsies. They only show inflammation and no clear cause. He also had a stress test a month ago which showed a moderate reversible defect. He was supposed to be scheduled for cardiac cath but has not gotten a call about it. Today he started having severe chest pain about 730 this morning. It is gone now and it has been coming and going since then. He said it is worse than any of the chest pain he has had up to this point. He is a diabetic but had gotten off all of his diabetes medicines until this problem with his lungs started. Then he was put on prednisone and has required insulin since then. He said with the insulin at times he has been having diarrhea and did have one episode this morning. He denies fevers or cough. His shortness of breath is worse today. MD complaint: chest pain Pertinent past history: other (Abnormal stress test showing reversible defect done on December 31.) Onset (ago): hour(s) (4) Timing of current episode: episodic Prior episodes: Yes Onset: during rest Pain location: substernal Pain radiation: none Severity: moderate Quality: aching and heaviness Relieving factors: nothing Exacerbating factors: nothing Associated symptoms: Reports dyspnea; Deny abdominal pain, fever(s), nausea or vomiting Review of Systems General: Reports: 10 or more systems reviewed and unremarkable except in HPI and below Const: Reports: fatigue; Denies: fever(s), chills or malaise Eyes: Denies: change in vision ENMT: Denies: odynophagia Card: Reports: chest pain; Denies: swelling of feet/ankles Resp: Reports: dyspnea GI: Reports: diarrhea; Denies: abdominal pain, nausea or vomiting : Denies: flank pain Musc: Denies: neck pain or back pain Skin/Breast: Denies: rash Neuro: Denies: headache(s), numbness in extremities or weakness in extremities Guy/Lymph: Denies: easy bruising or easy bleeding [facility] ED PFSH: Medical History (Updated 02/01/20 @ 13:38 by Aspen Garza MD) GILBERT (obstructive sleep apnea) Pleural effusion Type 2 diabetes mellitus Surgical History H/O elbow surgery History of ankle surgery Family History Father CAD (coronary artery disease) Cancer prostate Sister Cancer Social History Smoking and tobacco status: current every day smoker smokeless tobacco Second hand smoke exposure: No Alcohol intake: current Alcohol intake frequency: holidays/special occasions only Lives independently: Yes Household members: spouse Housing: House Marital status: Current occupational status: employed Current occupation: Self-Employed History of recent travel: No Current gender identity: Male Physical Exam Const: COMMON NORMALS: no acute distress, patient oriented x3, no limitations and alert GENERAL APPEARANCE: cooperative and comfortable HENMT: HEAD & SCALP: normal to inspection FACE & SINUS: normal facial exam Eye: GENERAL EYE: appearance normal, both eyes and all related structures Neck/C-Spine: COMMON NORMALS: supple, no meningeal signs and no JVD Chest: COMMONS NORMALS: normal inspection of the chest Resp: COMMON NORMALS: normal respiratory effort, No use of accessory muscles and clear to auscultation bilaterally AUSCULTATION: clear to auscultation bilaterally Cardio: COMMON NORMALS: no JVD, regular rate, regular rhythm and No murmurs present (Cardio) RATE: regular rate RHYTHM: regular rhythm GI: COMMON NORMALS: Normal to inspection, nondistended, normoactive bowel sounds present, Soft to palpation and non-tender INSPECTION: Yes normal to inspection AUSCULTATION: Yes normoactive bowel sounds PALPATION: Yes Soft to palpation Back/Pelvis: COMMON NORMALS: thoracic and lumbar spine normal to inspection Extremity: COMMON NORMALS: normal to inspection Neuro: COMMON NORMALS: patient oriented x3, moves all extremities, no focal motor deficits and no sensory deficits noted SENSORIUM/ORIENTATION: Yes alert MENINGEAL SIGNS: Yes no meningeal signs Psych: COMMON NORMALS: mental status grossly normal, cooperative and normal affect Skin: COMMON NORMALS: no rashes or lesions noted and turgor normal GENERAL SKIN EXAM: no rashes or lesions noted and turgor normal Course ED course: Patient reports that he is been having a little bit of dull chest pain while in the department. He said that is kind of typical of what he has been having over the past couple months. The pain he had this morning was severe and only associated with exertion. It resolved with rest. I spoke with Dr. Shields and he will plan to cath him tomorrow. Dr. Sousa will admit him to the hospital for serial EKGs, serial troponins and monitoring. Vital Signs: Vital signs: Vital Signs Temperature 98.2 F 02/01/20 11:04 Pulse Rate 91 02/01/20 11:04 Respiratory Rate 14 02/01/20 11:04 Blood Pressure 154/101 02/01/20 11:04 Pulse Oximetry 93 02/01/20 11:04 MDM - Chest Pain Lab Data: Labs: Lab Results 02/01/20 02/01/20 02/01/20 Range/Units 12:10 12:10 12:10 WBC 9.9 (4.0-10.0) 10^3/ uL RBC 5.03 (4.1-5.3) 10^6/u L Hgb 15.2 (11.7-16.6) g/dL Hct 46.3 (42.0-52.0) % MCV 92.0 (80-94) fL MCH 30.2 (28.0-34.0) pg MCHC 32.8 (30.0-36.0) g/dL RDW 14.1 (12.1-15.1) % Plt Count 211 (130-400) 10^3/c mm MPV 9.5 (7.4-10.4) fL Neut % (Auto) 70.1 % Lymph % (Auto) 25.2 % [place] % (Auto) 3.0 % Eos % (Auto) 0.1 % Baso % (Auto) 0.3 % Neut # (Auto) 6.93 (1.8-7.7) 10^3/u L Lymph # (Auto) 2.5 (0.8-4.8) 10^3/u L [place] # (Auto) 0.3 (0.2-0.9) 10^3/u L Eos # (Auto) 0.0 (0.0-0.8) 10^3/u L Baso # (Auto) 0.0 (0.0-0.1) 10^3/u L Nucleated RBC % (a uto) 0 % Nucleated RBCs # 0.0 /100WBC PT (12.1-14.9) SECO NDS INR (0.8-1.2) Sodium 134 L (136-145) mmol/L Potassium 5.0 (3.5-5.1) mmol/L Chloride 94 L (98-107) mmol/L Carbon Dioxide 27 (22-29) mmol/L Anion Gap 18.0 (5-19) BUN 18 (8-23) mg/dL Creatinine 0.8 (0.7-1.2) mg/dL GFR Calculation 98.3 (90-130) mL/min Glucose 257 H (65-115) mg/dL Calculated Osmolal ity 289 (285-295) mOsm/k g Calcium 9.4 (8.5-10.5) mg/dL Total Bilirubin 0.4 (0.15-1.2) mg/dL AST 16 (0-40) U/L ALT 31 (0-41) U/L Alkaline Phosphata se 82 (40-130) IU/L Troponin T Baselin e 16 H (0-15) ng/L NT-Pro-B Natriuret Pep 157 H (0-125) pg/mL Total Protein 6.9 (6.6-8.7) g/dL Albumin 4.3 (3.5-5.2) g/dL Globulin 2.6 (1.3-4.6) g/dL Lipase 17 (13-60) U/L 11/30/20 Range/Units 12:10 WBC (4.0-10.0) 10^3/ uL RBC (4.1-5.3) 10^6/u L Hgb (11.7-16.6) g/dL Hct (42.0-52.0) % MCV (80-94) fL MCH (28.0-34.0) pg MCHC (30.0-36.0) g/dL RDW (12.1-15.1) % Plt Count (130-400) 10^3/c mm MPV (7.4-10.4) fL Neut % (Auto) % Lymph % (Auto) % [place] % (Auto) % Eos % (Auto) % Baso % (Auto) % Neut # (Auto) (1.8-7.7) 10^3/u L Lymph # (Auto) (0.8-4.8) 10^3/u L [place] # (Auto) (0.2-0.9) 10^3/u L Eos # (Auto) (0.0-0.8) 10^3/u L Baso # (Auto) (0.0-0.1) 10^3/u L Nucleated RBC % (a uto) % Nucleated RBCs # /100WBC PT 12.30 (12.1-14.9) SECO NDS INR 0.89 (0.8-1.2) Sodium (136-145) mmol/L Potassium (3.5-5.1) mmol/L Chloride (98-107) mmol/L Carbon Dioxide (22-29) mmol/L Anion Gap (5-19) BUN (8-23) mg/dL Creatinine (0.7-1.2) mg/dL GFR Calculation (90-130) mL/min Glucose (65-115) mg/dL Calculated Osmolal ity (285-295) mOsm/k g Calcium (8.5-10.5) mg/dL Total Bilirubin (0.15-1.2) mg/dL AST (0-40) U/L ALT (0-41) U/L Alkaline Phosphata se (40-130) IU/L Troponin T Baselin e (0-15) ng/L NT-Pro-B Natriuret Pep (0-125) pg/mL Total Protein (6.6-8.7) g/dL Albumin (3.5-5.2) g/dL Globulin (1.3-4.6) g/dL Lipase (13-60) U/L Discharge Plan Discharge Patient Disposition: Admitted As Inpatient Clinical Impression: Unstable angina pectoris, Interstitial lung disease, Diabetes Condition: Stable Coding Level of Care Code ED Wax Room Supervisor for g Fwd Exam Comprehensive
[2020-02-01 12:29] LABS: Basophils % 0.3 %; Eosinophils % 0.1 %; Hematocrit 46.3 % (42.0-52.0); Hemoglobin 15.2 g/dL (11.7-16.6); Lymphocytes # 2.5 10^3/uL (0.8-4.8); Lymphocytes % 25.2 %; Mean Corpuscular HGB Conc 32.8 g/dL (30.0-36.0); Mean Corpuscular Hemoglobin 30.2 pg (28.0-34.0); Mean Platelet Volume 9.5 fL (7.4-10.4); Monocytes # 0.3 10^3/uL (0.2-0.9); Neutrophils # 6.93 10^3/uL (1.8-7.7); Neutrophils % 70.1 %; Nucleated Red Blood Cells % 0 %; Platelet Count 211 10^3/cmm (130-400); Red Blood Count 5.03 10^6/uL (4.1-5.3); Red Cell Distribution Width 14.1 % (12.1-15.1); White Blood Count 9.9 10^3/uL (4.0-10.0)
[2020-02-01 12:48] LABS: INR 0.89 (0.8-1.2)
[2020-02-01 13:01] LABS: Troponin(5th) Baseline 16 ng/L (0-15)
[2020-02-01 13:06] LABS: Alanine Aminotransferase 31 U/L (0-41); Albumin Level 4.3 g/dL (3.5-5.2); Alkaline Phosphatase 82 IU/L (40-130); Aspartate Amino Transferase 16 U/L (0-40); Blood Urea Nitrogen 18 mg/dL (8-23); Calcium 9.4 mg/dL (8.5-10.5); Carbon Dioxide 27 mmol/L (22-29); Chloride 94 mmol/L (98-107); Globulin 2.6 g/dL (1.3-4.6); Glomerular Filtration Rate 98.3 mL/min (90-130); Glucose 257 mg/dL (65-115); Lipase 17 U/L (13-60); NT Pro B Type Natriuretic Pept 157 pg/mL (0-125); Osmolality Calculated 289 mOsm/kg (285-295); Sodium 134 mmol/L (136-145); Total Bilirubin 0.4 mg/dL (0.15-1.2); Total Protein 6.9 g/dL (6.6-8.7)
--- NOTE | 2020-02-01 13:16 | ECG_ITS ---
[facility] Test Date: 2020-02-01 Pat Name: Orville Jang Department: Room: Gender: Male Client Relationship Consultant: : 1960 Requested By: Aspen Ozuna Order Number: [id number] Mónica MD: MUMTAZ ANDERSON Measurements Intervals [place] Rate: 82 P: 54 [place]: 148 QRS: -8 QRSD: 102 T: 2 QT: 381 QTc: 447 Interpretive Statements SINUS RHYTHM VOLTAGE CRITERIA FOR LVH [MEETS CRITERIA IN ONE OF: R(aVL), S(V1), R(V5), R(V5/V6)+S(V1)] Compared to ECG 02/01/2020 11:05:48 No significant changes Electronically Signed On 02-01-2020 17:32:35 INTERVENTIONAL PHYSIATRIST by MUMTAZ ANDERSON [email or web address]/store/[id number] f
--- NOTE | 2020-02-01 13:57 | PM.HP ---
Providers/Chief Complaint Primary Care Provider: Kristian Ramey DO Chief Complaint: chest pain History of Present Illness Orville Jang is a 59 year old male with a past medical history of interstitial lung disease, 2 L oxygen dependent, insulin-dependent type 2 days mellitus, recent history of positive cardiac stress test who presents to [facility] due to chest pain. 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 Patient tells me that he woke up this morning, with severe substernal chest pain, squeezing-like pain, lasting for about an hour, no associated shortness of breath, nonradiating, no lightheaded, dizziness, no nausea, no vomiting, did not use anything for the pain. Currently is chest pain-free. Review of Systems Const: Denies: fever(s), chills, fatigue or malaise Eyes: Denies: change in vision or blurry vision ENMT: Denies: nasal congestion Card: Reports: chest pain; Denies: palpitations Resp: Denies: dyspnea, productive cough, non-productive cough or wheezing GI: Denies: abdominal pain, nausea, vomiting, hematemesis, diarrhea, constipation, hematochezia or melena : Denies: flank pain, difficulty urinating, dysuria or urinary frequency Musc: Denies: neck pain or back pain Skin/Breast: Denies: rash Neuro: Denies: headache(s), dizziness or vertigo Psych: Denies: anxiety or depression Endo: Denies: polyuria or polydipsia Medications/Allergies Home Medications Medication Instructions Recorded Confirmed Last Taken Type albuterol sulfate 90 mcg/actuation 2 puff INHALATION Q6H PRN 11/11/19 02/01/20 Unknown History aerosol inhaler Airborne Gummy 1 cap PO BID 12/04/19 02/01/20 12/03/19 History pen needle, diabetic 29 gauge x #100 each 12/09/19 02/01/20 Unknown Rx 1/2 fluticasone propionate 50 1 spray INTRANASAL Q12H 30 Days 12/14/19 02/01/20 Unknown Rx mcg/actuation nasal #15.8 ml spray,suspension prednisone 50 mg tablet 50 mg PO DAILY 30 Days #30 tab 12/14/19 02/01/20 02/01/20 Rx 40 MG sulfamethoxazole 800 1 tab PO .Saturday12/14/19 02/01/20 Unknown Rx mg-trimethoprim 160 mg tablet 30 Days #30 tab aspirin 81 mg tablet,delayed 81 mg PO DAILY 01/11/20 02/01/20 02/01/20 History release prednisone 5 mg tablet 5 mg PO .COMPLEX 60 Days #60 tab 01/11/20 02/01/20 Unknown Rx insulin glargine [Lantus Solostar 29 unit SUBCUT DAILY 02/01/20 02/01/20 02/01/20 History U-100 Insulin] Allergies Allergy/AdvReac Type Severity Reaction Status Date / Time No Known Allergies Allergy Verified 02/01/20 13:11 PFSH Acute PFSH: Medical History (Updated 02/01/20 @ 14:01 by Zoran Sousa MD) Diabetes Interstitial lung disease GILBERT (obstructive sleep apnea) Pleural effusion Type 2 diabetes mellitus Surgical History H/O elbow surgery History of ankle surgery Family History Father CAD (coronary artery disease) Cancer prostate Sister Cancer Social History Smoking and tobacco status: current every day smoker smokeless tobacco Second hand smoke exposure: No Alcohol intake: current Alcohol intake frequency: holidays/special occasions only Lives independently: Yes Household members: spouse Housing: House Marital status: Current occupational status: employed Current occupation: Self-Employed History of recent travel: No Current gender identity: Male Vitals/I&O/Wt Last Vital Signs Temp 98.2 F 02/01/20 11:04 Pulse 91 02/01/20 11:04 Resp 14 02/01/20 11:04 BP 154/101 02/01/20 11:04 Pulse Ox 93 02/01/20 11:04 Weight last 48 hrs Weight 83.915 kg Physical Exam Const: COMMON NORMALS: no acute distress and patient oriented x3 GENERAL APPEARANCE: cooperative and comfortable HENMT: COMMON NORMALS: normocephalic HEAD & SCALP: normocephalic Eye: COMMON NORMALS: Equal, round and reactive pupils present and EOMs intact bilaterally GENERAL EYE: appearance normal, both eyes and all related structures PUPIL: Yes Equal, round and reactive pupils present Neck/C-Spine: COMMON NORMALS: full ROM, no lymphadenopathy, no JVD and Thyroid normal THYROID: Thyroid normal Lymph: LYMPHATIC: no lymphadenopathy noted Resp: COMMON NORMALS: normal respiratory effort, No retractions, No use of accessory muscles and clear to auscultation bilaterally AUSCULTATION: clear to auscultation bilaterally Cardio: COMMON NORMALS: no JVD, regular rate, regular rhythm, S1 normal heart sound present, S2 normal heart sound present, No gallops present (Cardio), No clicks present (Cardio) and No murmurs present (Cardio) RATE: regular rate RHYTHM: regular rhythm HEART SOUNDS: S1 normal heart sound present and S2 normal heart sound present GI: COMMON NORMALS: Normal to inspection, nondistended, normoactive bowel sounds present, Soft to palpation, non-tender and No hepatosplenomegaly present PALPATION: Yes Soft to palpation and Yes No hepatosplenomegaly present Extremity: COMMON NORMALS: normal to inspection, full ROM and no pedal edema Neuro: COMMON NORMALS: patient oriented x3, CN's II-XII intact bilaterally, moves all extremities and no focal motor deficits Psych: COMMON NORMALS: mental status grossly normal, Normal thought process present and cooperative THOUGHT PROCESS: Normal thought process present Data : 02/01/20 12:10 02/01/20 12:10 A&P Assessment and plan (1) Unstable angina pectoris: -Echocardiogram on November 25, 2019, which showed borderline reduced ejection fraction of 45 to 50%, grade 1 diastolic dysfunction -Nuclear stress test on January 01, 2020:Medium-sized area of mild to moderate reversibility noted in basal to mid anterior and basal to mid inferior wall suggestive of possible ischemia in LAD and RCA territory. Left ventricle function is severely depressed at 29%. There is global hypokinesis -Baseline troponin 16 -EKG shows no acute ST-T wave changes Plan: -Admit to cardiac stepdown unit -Aspirin, statin, Coreg, therapeutic Lovenox -Serial EKGs, serial troponins, telemetry monitoring -N.p.o. midnight -Plan on coronary angiogram tomorrow morning by Dr. Shields -Full code -Lovenox for DVT prophylaxis Status: Acute (2) Interstitial lung disease: Status: Acute (3) Insulin dependent type 2 diabetes mellitus: Insulin sliding scale, with glargine 29 units in the morning Status: Acute Attestations Medical Necessity Statement*: Patient requires hospitalization, outpatient with observation, for chest pain Coding Level of Care Code Acute Coal Weigher for [facility] Diagnoses Unstable angina pectoris I20.0 Interstitial lung disease J84.9 Insulin dependent type 2 diabetes mellitus E11.9; Z79.4
--- NOTE | 2020-02-01 17:10 | PC.RESP ---
Smoking Cessation information sent to patient.
--- NOTE | 2020-02-01 17:21 | P.CONIM_ITS ---
Providers/Reason For Consult Consulting Physican/Specialty*: Clarence Shields MD/Cardiology Reason for Consult*: Chest pain Requesting Physcian: Dr Garza Attending Physician: Zoran Sousa MD Primary Care Provider: Kristian Ramey DO History of Present Illness History of Present Illness Orville Jang is a 59 year old male with past medical history of diabetes, obstructive sleep apnea on CPAP with chest pain. According to patient he started noticing chest pain this morning at around 7 AM. It was substernal with radiation to left arm. It lasted for about 30-45 minutes. Patient was seen by me in the office earlier in the month for exertional chest pain and abnormal stress test. His nuclear stress test had shown reversible defect in the LAD and RCA territory. He was waiting for outpatient catheterization howeverhad severe chest pain this morning. He says that recently has noted increased frequency of chest discomfort with any exertion he does. Patient's EKG did not reveal any acute changes. His troponin has been negative so far. Review of Systems Narrative: CONSTITUTIONAL: No fever chills weight loss or gain or night sweats. [] HEENT: Normocephalic, atraumatic.[] RESPIRATORY: No cough, sputum, hemoptysis or wheezing.[] CARDIOVASCULAR: Chest pain, PND, orthopnea, no extremity edema, presyncope or syncope. [] GI: no nausea vomiting diarrhea. [] HUMAN RESOURCE ADVISOR: No numbness, tingling, weakness or loss of function in any part of the body. [] MUSCULOSKELETAL: No knee or joint pain or rashes. [] Meds/Allergies Home Medications and Allergies Home Medications Medication Instructions Recorded Confirmed Last Taken Type albuterol sulfate 90 mcg/actuation 2 puff INHALATION Q6H PRN 11/11/19 02/01/20 Unknown History aerosol inhaler Airborne Gummy 1 cap PO BID 12/04/19 02/01/20 12/03/19 History pen needle, diabetic 29 gauge x #100 each 12/09/19 02/01/20 Unknown Rx 1/2 fluticasone propionate 50 1 spray INTRANASAL Q12H 30 Days 12/14/19 02/01/20 Unknown Rx mcg/actuation nasal #15.8 ml spray,suspension prednisone 50 mg tablet 50 mg PO DAILY 30 Days #30 tab 12/14/19 02/01/20 02/01/20 Rx 40 MG sulfamethoxazole 800 1 tab PO .Saturday12/14/19 02/01/20 Unknown Rx mg-trimethoprim 160 mg tablet 30 Days #30 tab aspirin 81 mg tablet,delayed 81 mg PO DAILY 01/11/20 02/01/20 02/01/20 History release prednisone 5 mg tablet 5 mg PO .COMPLEX 60 Days #60 tab 01/11/20 02/01/20 Unknown Rx insulin glargine 100 unit/mL (3 29 unit SUBCUT DAILY #15 ml 02/01/20 Unknown Rx mL) subcutaneous pen Allergies Allergy/AdvReac Type Severity Reaction Status Date / Time No Known Allergies Allergy Verified 02/01/20 13:11 PFSH Acute PFSH: Medical History Diabetes Interstitial lung disease GILBERT (obstructive sleep apnea) Pleural effusion Type 2 diabetes mellitus Surgical History H/O elbow surgery History of ankle surgery Family History Father CAD (coronary artery disease) Cancer prostate Sister Cancer Social History Smoking and tobacco status: current every day smoker smokeless tobacco Second hand smoke exposure: No Alcohol intake: current Alcohol intake frequency: holidays/special occasions only Lives independently: Yes Household members: spouse Housing: House Marital status: Current occupational status: employed Current occupation: Self-Employed History of recent travel: No Current gender identity: Male Vitals/I&O/Wt Last Vital Signs Temp 98.2 F 02/01/20 11:04 Pulse 78 02/01/20 15:00 Resp 26 H 02/01/20 15:00 BP 158/98 02/01/20 15:00 Pulse Ox 98 02/01/20 15:00 Weight last 48 hrs Weight 185 lb Physical Exam Narrative: EXAM NARRATIVE: GENERAL: Patient is alert, awake and oriented x3. [] NECK: No jugular vein distension. [] HEENT: No cyanosis. No icterus. No pallor. [] HEART: Regular S1 and S2. No murmur, rub or gallop. [] LUNGS: Clear to auscultate bilaterally. [] ABDOMEN: Soft, nontender and nondistended. Positive bowel sounds. No guarding, rebound or tenderness. [] CENTRAL NERVOUS SYSTEM: Grossly nonfocal. [] EXTREMITIES: Lower extremities with no edema bilaterally. Pulses palpable in the lower extremities, both dorsalis pedis and posterior tibial. [] A&P Assessment and plan (1) Unstable angina pectoris: Status: Acute (2) Insulin dependent type 2 diabetes mellitus: Status: Acute (3) Interstitial lung disease: Status: Acute (4) Abnormal stress test: Status: Acute (5) GILBERT (obstructive sleep apnea): Status: Acute Patient is having increased frequency of chest pain recently. Had severe substernal pressure-like pain this morning that brought him to the hospital. Symptoms consistent with unstable angina. Continue aspirin. Trend troponins. We will plan for coronary angiography with possible intervention for tomorrow. I had a detailed discussion with the patient and his regarding risks and benefits of the procedure. Risks including bleeding, infection, renal function worsening, abnormal heart rhythm, heart attack, stoke and have been described. Patient understands the risks and benefits of the procedure and wants to proceed with the procedure. Keep patient n.p.o. past midnight. Thank you for involving us with care of this patient. Please call with questions. Coding Level of Care Code Acute Resource Manager for [facility] Diagnoses Unstable angina pectoris I20.0 Insulin dependent type 2 diabetes mellitus E11.9; Z79.4 Interstitial lung disease J84.9 Abnormal stress test R94.39 GILBERT (obstructive sleep apnea) G47.33
--- NOTE | 2020-02-01 17:30 | PC.NURSE ---
Patient to CSU from ER at 1630. Patient denies any CP or SOB, VSS. Dr. Shields at bedside to evaluate patient. Plan for angiogram in am. Telephone order from Dr. Sousa to not give 81 mg aspirin as patient states he took one this am, RBTO. Patient oriented to room and call light. Nurse to continue to monitor.
[2020-02-01 17:45] LABS: Glucose Point of Care 188 mg/dL (70-110)
[2020-02-01] MEDS: enoxaparin 80 mg/0.8 mL Syringe SUBCUT (18:35)
[2020-02-01] MEDS: fluticasone nasal spray 16gm Btl 1 SPRAY INTRANASAL (18:36)
[2020-02-01] MEDS: atorvastatin 40 mg Tablet 80 MG PO (20:57)
[2020-02-01 21:49] LABS: Glucose Point of Care 256 mg/dL (70-110)
[2020-02-02] VITALS (27 sets, daily range): BP systolic 118–148; BP diastolic 82–103; PULSE 76–96; RESP 16–34; TEMP 36.4–36.6; O2SAT 90–98
[2020-02-02] MEDS: fluticasone nasal spray 16gm Btl 1 SPRAY INTRANASAL (04:33)
[2020-02-02] MEDS: enoxaparin 80 mg/0.8 mL Syringe SUBCUT (04:33)
[2020-02-02 05:02] LABS: Basophils % 0.4 %; Eosinophils # 0.1 10^3/uL (0.0-0.8); Eosinophils % 0.6 %; Hematocrit 42.8 % (42.0-52.0); Hemoglobin 14.2 g/dL (11.7-16.6); Lymphocytes # 4.6 10^3/uL (0.8-4.8); Lymphocytes % 49.4 %; Mean Corpuscular HGB Conc 33.2 g/dL (30.0-36.0); Mean Corpuscular Hemoglobin 30.1 pg (28.0-34.0); Mean Corpuscular Volume 90.9 fL (80-94); Mean Platelet Volume 11.2 fL (7.4-10.4); Monocytes # 0.6 10^3/uL (0.2-0.9); Monocytes % 6.2 %; Neutrophils # 3.92 10^3/uL (1.8-7.7); Neutrophils % 42.4 %; Nucleated Red Blood Cells % 0 %; Platelet Count 193 10^3/cmm (130-400); Red Blood Count 4.71 10^6/uL (4.1-5.3); Red Cell Distribution Width 14.3 % (12.1-15.1); White Blood Count 9.3 10^3/uL (4.0-10.0)
[2020-02-02 05:46] LABS: Chol HDL Ratio 3.18 mg/dL (1.0-5.00); Cholesterol 226 mg/dL (0-200); HDL Cholesterol 71 mg/dL (60-100); LDL Cholesterol Calculated 115 mg/dL (50-129); LDL HDL Ratio 1.62 RATIO (0.00-3.22); NT Pro B Type Natriuretic Pept 119 pg/mL (0-125); Triglycerides 202 mg/dL (0-150)
[2020-02-02 05:47] LABS: Albumin Level 3.4 g/dL (3.5-5.2); Alkaline Phosphatase 68 IU/L (40-130); Blood Urea Nitrogen 19 mg/dL (8-23); Calcium 8.9 mg/dL (8.5-10.5); Carbon Dioxide 27 mmol/L (22-29); Chloride 96 mmol/L (98-107); Globulin 2.8 g/dL (1.3-4.6); Glomerular Filtration Rate 85.8 mL/min (90-130); Glucose 154 mg/dL (65-115); Magnesium 1.8 mg/dL (1.7-2.3); Osmolality Calculated 285 mOsm/kg (285-295); Phosphorus 4.1 mg/dL (2.5-4.5); Sodium 135 mmol/L (136-145); Thyroid Stimulating Hormone 1.74 uIU/mL (0.27-4.20); Total Bilirubin 0.2 mg/dL (0.15-1.2); Total Protein 6.2 g/dL (6.6-8.7)
[2020-02-02 05:50] LABS: Alanine Aminotransferase 28 U/L (0-41); Anion Gap 16.7 (5-19); Aspartate Amino Transferase 26 U/L (0-40); Potassium 4.7 mmol/L (3.5-5.1)
[2020-02-02] MEDS: sodium chloride 0.9% 1,000 ML 50 ML IV (06:33)
[2020-02-02 07:05] LABS: Glucose Point of Care 130 mg/dL (70-110)
[2020-02-02] MEDS: aspirin 81 mg EC Tablet PO (09:14)
[2020-02-02] MEDS: insulin glargine 100 units/1 mL 29 UNIT SUBCUT (09:14)
[2020-02-02] MEDS: pantoprazole DR 40 mg Tablet PO (09:14)
[2020-02-02] MEDS: predniSONE 20 mg Tablet 40 MG PO (09:14)
[2020-02-02] MEDS: diphenhydrAMINE 50 mg Capsule PO (09:14)
--- NOTE | 2020-02-02 09:40 | PC.CHAP ---
Pastoral Care Encounter/Spiritual Assessment Type of Contact [] Declined back sewer visit [] Patient/Family/Request visit [] Outpatient visit [] Follow-up visit [] Physician referral [] Code/Alert [x] Routine visit [] Staff referral [] Actively dying [] Patient sleeping [] Family support [] [] Out of room [] Palliative care [] [] Receiving care in room [] Pre-surgical visit [] Trauma [] Long length of stay [] ICU visit [] Other: Relational/Emotional Strength [] Patient feels connected with others/family/visitors/staff [] Distress [] Loneliness/isolation [] Abandonment Spirituality of Patient [] Person of Rose [] Attends Scientology of their Rose [] Believes in Prayer [] Reads Bible or Pentecostalism materials [] There are Spiritual issues to be addressed Bark Grinder Interventions [x] Prayer [x] Active listening [x] Non-anxious presence [x] Spiritual/emotional support [] Crisis/trauma care [] Spiritual counseling [] Bereavement support [] Provided bereavement packet [] Provided Bible/devotional materials [] Provided toy/stuffed animal, coloring book to patient or family member [] Provided Communion [] Anointing/[facility] [] Salvation [x] Completed spiritual assessment [] Other: Impact on Illness or Injury [] Angry [] Fearful [] Anxious [] Often cries [] Exhaustion [] Unable to work [] Unable to attend anabaptist [] Unable to walk/stand [] Unable to read [] Unable to drive [] Unable to eat/drink [] Unable to sleep [] Unable to be with family [] Patient intubated [] Other: Summary patient feeling stronger Time spent with patient 10 min
[2020-02-02 11:21] LABS: Glucose Point of Care 193 mg/dL (70-110)
--- NOTE | 2020-02-02 11:36 | XACV_ITS ---
Exam Room: 103 Ht: 150 cm Wt: 84 kg BSA: 1.91 m2 Gender: Male : 1960 Any Known Allergies: No known allergies Exam Priority: Routine Procedure(s): Procedure Description: Diagnostic procedure Procedure Description: Coronary angiography Diagnostic Cath Status: Urgent Diagnostic Findings * Left main artery: This is long vessel. Luminal irregularities are noted. It gives rise to LAD and left circumflex artery. * LAD: It arises from left main artery: Gives rise to a medium sized diagonal vessel. No significant disease is noted in the LAD or diagonal artery.Left circumflex artery: Left circumflex artery arises from left main artery. It gives rise to 2 OM branches. These are free of any significant disease.RCA: RCA arises from right coronary cusp. It is a large dominant vessel. It gives rise to PDA and PLV branch. No significant disease is noted in the RCA system. * . * No significant disease noted in the Left Main, LAD, Circumflex, or RCA coronary arteries. * Coronary angiography shows right dominance. Conclusions 1. Likely microvascular disease. 2. No significant disease noted in the Left Main, LAD, Circumflex, or RCA coronary arteries. Recommendations * We will add long-acting nitrate for microvascular disease. * Aggressive risk factor modification. Pressures Phase:Rest AO : 132 / 91 ( 107 ) @ 6:12:00 AM 140 / 25 ( 61 ) @ 6:15:00 AM LV : 148 / -21 / @ 6:14:00 AM Clinical Evaluation EBL: 5mL-10mL Procedural Details Procedure Consent Obtained. Pre-Procedure Time Out. Identified patient by full name and date of as verbalized by the patient/guarantor. Does the consent match the physician's order: Yes. Accurate & Complete Informed Consent: Yes. Inpatient/Outpatient History & Physical on Chart: Yes. If H&P is completed, is and addenduem needed: No; If yes, is the addendum complete: N/A. Visualize and Verify Site with Patient/Guarantor: N/A. Relevant Radiology Images available: N/A. Pre-op teaching completed and patient verbalized understanding. The risks, benefits, and alternatives of sedation and/or procedure were discussed by physician. The patient agrees to continue. Procedure started. [facility] Clinical Fraility Score: 3: Managing Well. Senior Quality Manager Indications: Worsening Angina. Chest Pain Symptom Assessment: Typical Angina Symptoms. Cardiovascular Instability: No. Correct patient, site and procedure confirmed by cath team. PERRLA. Strong, equal hand city director bilaterally. Lungs clear x 5 lobes. IV Site on Arrival: 20 gauge in the left anticubital. IV Fluids: 0.9% NaCl at KVO. 400 mL infused prior to catheterization laboratory technician. Pre Procedural Pulses: bilateral dorsalis pedis was 2+. Pre Procedural Pulses: bilateral posterior tibial was 2+. Pre Procedural Pulses: bilateral radial was 2+. Oxygen started at 2liters/min via nasal canula. bilateral groins was prepped with chloroprep then draped in the usual sterile fashion. right radial was prepped with chloroprep then draped in the usual sterile fashion. Baseline sample Acquired. HR: 82 BPM. Equipment: 6F - Radial. Physician arrived. Physician scrubbed in. Cardiac Cath Pack. ACIST Manifold Kit Model BT 2000. Heparinized Saline (2 units/mL), 1000 mL bag. Immediate Pre-Procedure Time Out. Correct Patient: Yes; Correct Procedure: Yes; Correct Site: Yes; Correct Patient Position: Yes; Correct Supplies: Yes; Dried Flammable Prep: Yes; Blood Products Available: N/A;. Lidocaine 1% infiltrated to the right radial. Arterial access obtained. A 5 kinyarwanda TIG catheter in over wire. EDP Sample taken: LV 148/-22,2; HR: 92 BPM; SpO2: 97%. Pullback taken: LV Off; AO Off; Mean: , Peak to Peak: , SEP: ; HR: 91 BPM; SpO2: 90%. Multiple views taken of right coronary artery. Catheter redirected to the LCA. Catheter removed over the exchange wire. A 5 kinyarwanda JL3.5 catheter in over wire. Multiple views taken of left coronary artery. Catheter removed over the exchange wire. Physician scrubbed out. A TR Band was successful obtaining hemostatsis at the Right Radial artery insertion site. TR band placed. Hemostasis obtained. Post Procedure: Pulses reassessed and unchanged. PERRLA. Strong, equal hand city director bilaterally. No VTE prophylaxis required. Medication's Wasted: Lidocaine 1% = 18 mL. Medication's Wasted: Nitro = 49.8 mg. Medication's Wasted: Heparin = 1000 units. Total IV fluids: 39.6 mL. Contrast type used: Omnipaque 300 mgI/mL, 500 mL bottle. Complications: none. Post-op diagnosis: non obstructive CAD. Estimated blood loss: 5mL-10mL. Procedure completed. Patient transferred by wheelchair to 1st floor. Vital chart was stopped. Access Site Site: Right Radial artery Sheath Size: 6 Fr Hemostasis Method: TR Band Hemostasis Success: Successful Procedure Medications Start: 12:01 PM Stop: 12:01 PM Medication: Versed Amount: 1 mg Route: I.V. Start: 12:02 PM Stop: 12:02 PM Medication: Fentanyl Amount: 50 mcg Start: 12:08 PM Stop: 12:08 PM Medication: Versed Amount: 1 mg Route: I.V. Start: 12:08 PM Stop: 12:08 PM Medication: Fentanyl Amount: 50 mcg Start: 12:10 PM Stop: 12:10 PM Medication: Nitrogylcerin Amount: 200 mcg Route: I.A. Start: 12:12 PM Stop: 12:12 PM Medication: Heparin Amount: 5000 units Route: ISoco Delvalle, the attending physician, have reviewed and verified all procedure medications. Yes, all medications given per verbal order History/Risk Factors Hypertension: No Dyslipidemia: No Peripheral Arterial Disease (PAD): No Myocardial Infarction (TN): No Obesity: No Renal Disease: No Tobacco Use: Current/Recent(w/in 1 year) Prior Interventions PCI: No CABG: No Valve Surgery: No Report Signatures Finalized by Clarence Shields MD on 02/04/2020 11:21 AM
--- NOTE | 2020-02-02 12:02 | W.PM.OPSUD ---
Surgery/Procedure H&P Update DATE OF PROCEDURE: February 02, 2020 DATE H&P PERFORMED: 02/01/20 H&P UPDATE INFORMATION: I have reviewed H&P completed within last 30 days and I have examined patient prior to procedure PREOP DIAGNOSIS: Unstable angina PRIMARY INDICATION FOR PROCEDURE: Unstable angina PLANNED PROCEDURE: Coronary angiograpy/left heart cath/ possible percutaneous coronary intervention PATIENT REASSESSED PRIOR TO SEDATION, WITH NO CHANGE NOTED: Yes PHYSICAL EXAM: alert, oriented x 3 and clear to auscultation bilaterally AIRWAY EVAL/ANESTHESIA PLAN: ASA III, Risks, benefits & alternatives of sedation and/or procedure discussed and Patient agrees to continue as planned
--- NOTE | 2020-02-02 12:30 | PM.PN ---
Subjective Subjective: Interval history: Patient is doing well. He underwent coronary angiography today that did not show any siginificant coronary artery disease. Vitals/I&O/Wt Last Vital Signs Temp 97.9 F 02/02/20 07:06 Pulse 90 02/02/20 07:06 Resp 18 02/02/20 07:06 BP 134/97 02/02/20 07:06 Pulse Ox 97 02/02/20 07:06 02/01/20 02/02/20 02/02/20 22:59 06:59 14:59 Output Total 475 / 475 700 / 1175 450 / 450 Balance -475 / -475 -700 / -1175 -450 / -450 Weight last 48 hrs Weight 185 lb Physical Exam Narrative: EXAM NARRATIVE: GENERAL: Patient is alert, awake and oriented x3. [] NECK: No jugular vein distension. [] HEENT: No cyanosis. No icterus. No pallor. [] HEART: Regular S1 and S2. No murmur, rub or gallop. [] LUNGS: Clear to auscultate bilaterally. [] ABDOMEN: Soft, nontender and nondistended. Positive bowel sounds. No guarding, rebound or tenderness. [] CENTRAL NERVOUS SYSTEM: Grossly nonfocal. [] EXTREMITIES: Lower extremities with no edema bilaterally. Pulses palpable in the lower extremities, both dorsalis pedis and posterior tibial. [] Data : 02/02/20 04:55 02/02/20 04:55 A&P Assessment and plan (1) Unstable angina pectoris: Status: Resolved (2) Insulin dependent type 2 diabetes mellitus: Status: Acute (3) Interstitial lung disease: Status: Acute (4) Abnormal stress test: Status: Resolved (5) GILBERT (obstructive sleep apnea): Status: Acute Patient underwent coronary angiography today that did not show significant coronary artery disease. Chest pain likely related to microvascular dysfunction vs coronary artery spasm Continue aspirin. We will add Imdur Patient can be discharged later today. Thank you for involving us with care of this patient. Please call with questions. Attestations Medical Necessity Statement*: Care not expected to cross 2 midnights Coding Level of Care Code Acute Support Specialist for Maxig Fwd Diagnoses Unstable angina pectoris I20.0 Insulin dependent type 2 diabetes mellitus E11.9; Z79.4 Interstitial lung disease J84.9 Abnormal stress test R94.39 GILBERT (obstructive sleep apnea) G47.33
--- NOTE | 2020-02-02 12:39 | P.DS_ITS ---
Discharge Providers Date of Admission: 02/01/20 13:38 Date of Discharge: February 02, 2020 Attending Provider at Admission: Zoran Sousa MD Attending Provider at Discharge: Zoran Sousa MD Primary Care Provider: Kristian Ramey DO Diagnoses at Discharge Discharge Diagnosis (1) Unstable angina pectoris: Status: Acute (2) Insulin dependent type 2 diabetes mellitus: Status: Acute (3) Interstitial lung disease: Status: Acute (4) Abnormal stress test: Status: Acute (5) GILBERT (obstructive sleep apnea): Status: Acute Reason for Visit Reason for Visit: chest pain Hospital Course Hospital Course Orville Jang is a 59 year old male with a past medical history of interstitial lung disease, 2 L oxygen dependent, insulin-dependent type 2 days mellitus, recent history of positive cardiac stress test who presents to [facility] due to chest pain. Patient was admitted to [facility] for unstable angina -Echocardiogram on November 25, 2019, which showed borderline reduced ejection fraction of 45 to 50%, grade 1 diastolic dysfunction -Nuclear stress test on January 01, 2020:Medium-sized area of mild to moderate reversibility noted in basal to mid anterior and basal to mid inferior wall suggestive of possible ischemia in LAD and RCA territory. Left ventricle fun ction is severely depressed at 29%. There is global hypokinesis -Baseline troponin 16 -EKG shows no acute ST-T wave changes -Patient underwent a cardiac catheterization, with Dr. Shields, no significant obstructive CAD seen on coronary angiogram -Patient will be discharged home on aspirin, statin, Imdur 30 mg daily, with close follow-up with Dr. Shields as outpatient Physical Exam Const: COMMON NORMALS: no acute distress and patient oriented x3 HENMT: COMMON NORMALS: normocephalic HEAD & SCALP: normocephalic Neck/C-Spine: COMMON NORMALS: no JVD Resp: COMMON NORMALS: normal respiratory effort, No retractions, No use of accessory muscles and clear to auscultation bilaterally AUSCULTATION: clear to auscultation bilaterally Cardio: COMMON NORMALS: no JVD, regular rate, regular rhythm, S1 normal heart sound present and S2 normal heart sound present RATE: regular rate RHYTHM: regular rhythm HEART SOUNDS: S1 normal heart sound present and S2 normal heart sound present GI: COMMON NORMALS: Normal to inspection, nondistended, normoactive bowel sounds present, Soft to palpation, non-tender, No hepatosplenomegaly present, no masses and no bruits PALPATION: Yes Soft to palpation and Yes No hepatosplenomegaly present Extremity: COMMON NORMALS: capillary refill normal, no clubbing, cyanosis or edema, no calf tenderness and no pedal edema Neuro: COMMON NORMALS: patient oriented x3 Psych: COMMON NORMALS: mental status grossly normal Discharge Data Data Completed and Pending: Completed Studies During Hospitalization Category Date Time Status XR chest 2V* [id number] Stat Exams 02/01/20 11:11 Completed Pending at discharge Category Date Time Status HYPERBARIC NURSE request for service Routin e Exams 02/02/20 11:36 Ordered Complete Blood Co unt w/Auto AM LABS Lab 02/03/20 04:00 Ordered Complete Blood Co unt w/Auto AM LABS Lab 02/04/20 04:00 Ordered Comprehensive Met abolic Panel AM LA BS Lab 02/03/20 04:00 Ordered Comprehensive Met abolic Panel AM LA BS Lab 02/04/20 04:00 Ordered Magnesium AM LABS Lab 02/03/20 04:00 Ordered Magnesium AM LABS Lab 02/04/20 04:00 Ordered Phosphorus AM LAB S Lab 02/03/20 04:00 Ordered Phosphorus AM LAB S Lab 02/04/20 04:00 Ordered Labs from last 24 hours 02/02/20 02/02/20 02/02/20 11:18 06:33 04:55 WBC RBC Hgb Hct MCV MCH MCHC RDW Plt Count MPV Neut % (Auto) Lymph % (Auto) [place] % (Auto) Eos % (Auto) Baso % (Auto) Neut # (Auto) Lymph # (Auto) [place] # (Auto) Eos # (Auto) Baso # (Auto) Nucleated RBC % (a uto) Nucleated RBCs # PT INR Sodium Potassium Chloride Carbon Dioxide Anion Gap BUN Creatinine GFR Calculation Glucose POC Glucose 193 130 Calculated Osmolal ity Calcium Phosphorus Magnesium Total Bilirubin AST ALT Alkaline Phosphata se Troponin T Baselin e Troponin T 120 Min [place] Troponin T NT-Pro-B Natriuret Pep 119 Total Protein Albumin Globulin Triglycerides 202 H Cholesterol 226 H LDL Cholesterol, C alc 115 HDL Cholesterol 71 LDL/HDL Ratio 1.62 Cholesterol/HDL Ra timmy 3.18 Lipase TSH 02/02/20 02/02/20 02/01/20 04:55 04:55 21:36 WBC 9.3 RBC 4.71 Hgb 14.2 Hct 42.8 MCV 90.9 MCH 30.1 MCHC 33.2 RDW 14.3 Plt Count 193 MPV 11.2 H Neut % (Auto) 42.4 Lymph % (Auto) 49.4 [place] % (Auto) 6.2 Eos % (Auto) 0.6 Baso % (Auto) 0.4 Neut # (Auto) 3.92 Lymph # (Auto) 4.6 [place] # (Auto) 0.6 Eos # (Auto) 0.1 Baso # (Auto) 0.0 Nucleated RBC % (a uto) 0 Nucleated RBCs # 0.0 PT INR Sodium 135 L Potassium 4.7 Chloride 96 L Carbon Dioxide 27 Anion Gap 16.7 BUN 19 Creatinine 0.9 GFR Calculation 85.8 L Glucose 154 H POC Glucose 256 Calculated Osmolal ity 285 Calcium 8.9 Phosphorus 4.1 Magnesium 1.8 Total Bilirubin 0.2 AST 26 ALT 28 Alkaline Phosphata se 68 Troponin T Baselin e Troponin T 120 Min [place] Troponin T NT-Pro-B Natriuret Pep Total Protein 6.2 L Albumin 3.4 L Globulin 2.8 Triglycerides Cholesterol LDL Cholesterol, C alc HDL Cholesterol LDL/HDL Ratio Cholesterol/HDL Ra timmy Lipase TSH 1.74 02/01/20 02/01/20 02/01/20 17:17 14:53 12:10 WBC RBC Hgb Hct MCV MCH MCHC RDW Plt Count MPV Neut % (Auto) Lymph % (Auto) [place] % (Auto) Eos % (Auto) Baso % (Auto) Neut # (Auto) Lymph # (Auto) [place] # (Auto) Eos # (Auto) Baso # (Auto) Nucleated RBC % (a uto) Nucleated RBCs # PT 12.30 INR 0.89 Sodium Potassium Chloride Carbon Dioxide Anion Gap BUN Creatinine GFR Calculation Glucose POC Glucose 188 Calculated Osmolal ity Calcium Phosphorus Magnesium Total Bilirubin AST ALT Alkaline Phosphata se Troponin T Baselin e Troponin T 120 Min [place] 14.50 [place] Troponin T -1.50 L NT-Pro-B Natriuret Pep Total Protein Albumin Globulin Triglycerides Cholesterol LDL Cholesterol, C alc HDL Cholesterol LDL/HDL Ratio Cholesterol/HDL Ra timmy Lipase TSH 02/01/20 02/01/20 12:10 12:10 WBC RBC Hgb Hct MCV MCH MCHC RDW Plt Count MPV Neut % (Auto) Lymph % (Auto) [place] % (Auto) Eos % (Auto) Baso % (Auto) Neut # (Auto) Lymph # (Auto) [place] # (Auto) Eos # (Auto) Baso # (Auto) Nucleated RBC % (a uto) Nucleated RBCs # PT INR Sodium 134 L Potassium 5.0 Chloride 94 L Carbon Dioxide 27 Anion Gap 18.0 BUN 18 Creatinine 0.8 GFR Calculation 98.3 Glucose 257 H POC Glucose Calculated Osmolal ity 289 Calcium 9.4 Phosphorus Magnesium Total Bilirubin 0.4 AST 16 ALT 31 Alkaline Phosphata se 82 Troponin T Baselin e 16 H Troponin T 120 Min [place] Troponin T NT-Pro-B Natriuret Pep 157 H Total Protein 6.9 Albumin 4.3 Globulin 2.6 Triglycerides Cholesterol LDL Cholesterol, C alc HDL Cholesterol LDL/HDL Ratio Cholesterol/HDL Ra timmy Lipase 17 TSH Vitals: Last Vital Signs Temp 97.9 F 02/02/20 07:06 Pulse 90 02/02/20 07:06 Resp 18 02/02/20 07:06 BP 134/97 02/02/20 07:06 Pulse Ox 97 02/02/20 07:06 Discharge Plan Discharge Patient Disposition: Home Condition: Stable Prescriptions: New isosorbide mononitrate 30 mg Tablet Extended Release 24 Hr 30 mg PO DAILY 30 Days Qty: 30 RF: 0 atorvastatin 40 mg tablet 40 mg PO DAILY 30 Days Qty: 30 RF: 0 pantoprazole 40 mg Tablet,Delayed Release (Dr/Ec) 40 mg PO DAILY 30 Days Qty: 30 RF: 0 Continued albuterol sulfate [ProAir HFA] 90 mcg/actuation HFA aerosol inhaler 2 puff INHALATION Q6H PRN (Reason: Shortness Of Breath) RF: 0 aspirin 81 mg tablet,delayed release (DR/EC) 81 mg PO DAILY RF: 0 prednisone 5 mg tablet 5 mg PO .COMPLEX 60 Days Qty: 60 RF: 0 fluticasone propionate [Flonase Allergy Relief] 50 mcg/actuation spray,suspension 1 spray INTRANASAL Q12H 30 Days Qty: 15.8 RF: 1 sulfamethoxazole-trimethoprim [Bactrim DS] 800-160 mg tablet 1 tab PO .Saturday 30 Days Qty: 30 RF: 1 prednisone 50 mg tablet 50 mg PO DAILY 30 Days Qty: 30 RF: 1 (DME) pen needle, diabetic [Comfort EZ Pen Harman] 29 gauge x 1/2 needle See Rx Instructions .ROUTE .MEDSUPPLY Qty: 100 RF: 0 Lantus Solostar U-100 Insulin 100 unit/mL (3 mL) insulin pen 29 unit SUBCUT DAILY Qty: 15 RF: 0 Airborne Gummy 1 cap PO BID RF: 0 Discharge Orders: Discharge Order (Routine); Ordered 02/02/20 Ordered By: Zoran Sousa Referrals: Clarence Shields M.D [Physician] - 2 weeks Kristian Ramey DO [Primary Care Provider] - Discharge Diet: Cardiac Discharge Activity: Resume usual activity Discharge Attestations Time Spent in Discharge Care*: less than 30 min Quality Metrics Clinical Quality Measures During this hospital stay, did patient experience: None Coding Level of Care Code Acute Shift Stacker for Chg Fwd Diagnoses Unstable angina pectoris I20.0 Insulin dependent type 2 diabetes mellitus E11.9; Z79.4 Interstitial lung disease J84.9 Abnormal stress test R94.39 GILBERT (obstructive sleep apnea) G47.33
--- NOTE | 2020-02-02 13:23 | PC.NURSE ---
Patient arrived to floor from golf course laborer at 1245. TR band intact to right wrist. 2 nurse verification of site, asymptomatic. Patient A&O, VSS. Nurse to continue to monitor. Patient updated on patient condition. Telephone order from Dr. Shields to discontinue IV fluids.
[2020-02-02 16:22] LABS: Glucose Point of Care 319 mg/dL (70-110)
--- NOTE | 2020-02-02 18:30 | PC.NURSE ---
TR band off at 1725. Site asymptomatic. Dressing applied. CDI. Nurse to continue to monitor.
--- NOTE | 2020-02-02 18:31 | PC.NURSE ---
Discharge instructions given per the physician's orders. Patient verbalized understanding of teaching and did not have any further questions. Patient dressed self, IV removed. No further needs identified at this time.
== END 2020-02-02 18:25 | disposition home or self-care (01) ==
LOC: ER 14:20 → CSU 02-02 05:06
PROVIDERS: Internal Medicine; Registered Nurse; Admitting Provider Family Medicine; Emergency Provider Emergency Medicine; PCP Family Medicine; Visit Provider Family Medicine
DX: I20.0 Unstable angina (principal); J84.9 Interstitial pulmonary disease, unspecified; E11.9 Type 2 diabetes mellitus without complications; Z79.4 Long term (current) use of insulin; G47.33 Obstructive sleep apnea (adult) (pediatric); Z99.81 Dependence on supplemental oxygen; Z79.52 Long term (current) use of systemic steroids; Z51.81 Encounter for therapeutic drug level monitoring; F17.290 Nicotine dependence, other tobacco product, uncomplicated; R94.39 Abnormal result of other cardiovascular function study
CPT/HCPCS: 12345; 36415; 36416; 71046; 80053; 80061; 82962; 83690; 83735; 83880; 84100; 84443; 84484; 85025; 85610; 93005; 93452; 94660; 94664; 96360; 96361; 96372; 99283; C1769; C1887; C1894; G0378; J1644; J1650; J1815 ×2; J2250; J3010; J3490; J7030; J7512; Q0163; Q9967

== ENCOUNTER → 2020-02-02 18:37 | Outpatient (BNVA) | payer BC, SELFPAY | PROVIDERS: PCP Family Medicine; Visit Provider Internal Medicine Critical Care Medicine | DX: Z20.828 Contact with and (suspected) exposure to other viral communicable diseases (principal); Z01.812 Encounter for preprocedural laboratory examination | CPT/HCPCS: 87635 ==

== ENCOUNTER 2020-02-08 14:58 | Outpatient (CLI) | payer BC, SELFPAY ==
--- NOTE | 2020-02-08 15:17 | PFTS_ITS ---
Date of Study:02/08/20 Date of Dictation: MECHANICS: Forced vital capacity (FVC) is reduced. Forced expiratory volume in one second (FEV1) is reduced. FEV1/FVC is normal. FLOW VOLUME LOOP: Narrow. LUNG VOLUMES: Lung volumes are not measured. DIFFUSING CAPACITY FOR CARBON MONOXIDE: Moderately reduced. INTERPRETATION: The prebronchodilator spirometry is consistent with severe restriction. Lung volumes are not measured. Gas exchange (DLCO) is moderately reduced. This has not been corrected for the patient's hemoglobin. MTDD
== END 2020-02-08 14:59 | disposition home or self-care (01) ==
LOC: RT 15:03
PROVIDERS: PCP Family Medicine; Visit Provider Internal Medicine Critical Care Medicine
DX: J84.89 Other specified interstitial pulmonary diseases (principal)
CPT/HCPCS: 94010; 94729

== ENCOUNTER 2020-02-09 10:08 | Outpatient (CLI) | payer BC, SELFPAY | END 2020-02-09 10:09 | disposition home or self-care (01) | PROVIDERS: PCP Family Medicine; Visit Provider Internal Medicine Critical Care Medicine | DX: J98.4 Other disorders of lung (principal) | CPT/HCPCS: 80048; 87070; 87205 ==

== ENCOUNTER → 2020-03-08 08:17 | Outpatient (BNVA) | payer OTHER, SELFPAY | PROVIDERS: PCP Family Medicine; Visit Provider Internal Medicine | DX: E09.9 Drug or chemical induced diabetes mellitus without complications (principal); T38.0X5A Adverse effect of glucocorticoids and synthetic analogues, initial encounter; J84.9 Interstitial pulmonary disease, unspecified; Z71.3 Dietary counseling and surveillance | CPT/HCPCS: 99214 ==

== ENCOUNTER 2020-04-12 04:50 | Emergency (ER) | payer OTHER, SELFPAY ==
[2020-04-12] VITALS (24 sets, daily range): BP systolic 92–177; BP diastolic 68–127; PULSE 122–166; RESP 32–33; O2SAT 81–98; BMI 29.5
[2020-04-12 05:02] LABS: Alveolar-Arterial Oxygen Gradi 59.7 mmHg (5-10); Arterial Blood Gas Hematocrit 49.6 % (42-52); Base Excess ABG -13.8 mmol/L (-2.0-2.0); Blood Gas Allen Test Pos; Blood Gas Sample Site Radial, left; Blood Gas Sample Type Arterial; Carboxyhemoglobin 0.8 %THgb (0.4-20.1); HCO3 ABG 18.7 mmol/L (22-26); HGB O2 Sat 95.9 % (95-100); Ionized Calcium Level - ABG 1.2 mmol/L (1.1-1.4); Methemoglobin 1.1 % (0.4-1.5); Oxygen Device VENT; Oxygen Saturation ABG 97.8; Potassium Level - ABG 4.4 mmol/L (3.5-5.0); Total Hemoglobin 16.2 g/dL (14-18)
[2020-04-12 05:05] LABS: ABG PCO2 72.6 mmHg (35-45); ABG PH Result 7.02 (7.35-7.45)
[2020-04-12] MEDS: midazolam 1 mg/mL INJ 2 mL 2 MG IVP (05:09)
[2020-04-12 05:23] LABS: Basophils # 0.2 10^3/uL (0.0-0.1); Basophils % 0.5 %; Eosinophils # 0.1 10^3/uL (0.0-0.8); Eosinophils % 0.2 %; Hematocrit 50.6 % (42.0-52.0); Hemoglobin 15.6 g/dL (11.7-16.6); Lymphocytes # 9.2 10^3/uL (0.8-4.8); Lymphocytes % 30.6 %; Mean Corpuscular HGB Conc 30.8 g/dL (30.0-36.0); Mean Corpuscular Hemoglobin 30.4 pg (28.0-34.0); Mean Corpuscular Volume 98.4 fL (80-94); Mean Platelet Volume 10.4 fL (7.4-10.4); Monocytes # 1.8 10^3/uL (0.2-0.9); Monocytes % 5.9 %; Neutrophils # 17.55 10^3/uL (1.8-7.7); Neutrophils % 58.4 %; Nucleated Red Blood Cells % 0.1 %; Platelet Count 230 10^3/cmm (130-400); Red Blood Count 5.14 10^6/uL (4.1-5.3); Red Cell Distribution Width 13.9 % (12.1-15.1); White Blood Count 30.1 10^3/uL (4.0-10.0)
--- NOTE | 2020-04-12 05:27 | XRR_ITS ---
PROCEDURE INFORMATION: Exam: XR Chest, 1 View Exam date and time: 04/12/2020 5:54 AM Age: 59 years old Clinical indication: Device placement; Ett placement (vent status); Patient HX: Intubated, og tube; Additional info: Resp failure TECHNIQUE: Imaging protocol: XR of the chest Views: 1 view. COMPARISON: CR XR chest 2V* [id number] 02/01/2020 11:18 AM FINDINGS: Tubes, catheters and devices: An endotracheal tube is present with its tip approximately 5 cm above the michelle. A orogastric tube projects in satisfactory position and projects on the stomach. Lungs: There are diffuse bilateral interstitial pulmonary infiltrates which are consistent with interstitial pneumonia. Allowing for differences in positioning there is no significant change. Pleural spaces: Unremarkable. No pleural effusion. No pneumothorax. Heart/Mediastinum: Unremarkable. No cardiomegaly. Bones/joints: Unremarkable. XR/XR chest 1V portable [id number] IMPRESSION: 1. Satisfactory position of the endotracheal tube and orogastric tube. 2. Stable diffuse bilateral interstitial pulmonary infiltrates.
[2020-04-12 05:35] LABS: Alanine Aminotransferase 101 U/L (0-41); Albumin Level 3.9 g/dL (3.5-5.2); Alkaline Phosphatase 171 IU/L (40-130); Blood Urea Nitrogen 34 mg/dL (8-23); Calcium 8.9 mg/dL (8.5-10.5); Carbon Dioxide 18 mmol/L (22-29); Chloride 95 mmol/L (98-107); Globulin 2.8 g/dL (1.3-4.6); Glucose 500 mg/dL (65-115); Osmolality Calculated 312 mOsm/kg (285-295); Sodium 136 mmol/L (136-145); Total Bilirubin 0.6 mg/dL (0.15-1.2); Total Protein 6.7 g/dL (6.6-8.7)
[2020-04-12 05:36] LABS: Troponin T (5th) Once 81 ng/L (0-15)
[2020-04-12 05:43] LABS: Anion Gap 27.5 (5-19); Aspartate Amino Transferase 131 U/L (0-40); Potassium 4.5 mmol/L (3.5-5.1)
[2020-04-12 05:53] LABS: NT Pro B Type Natriuretic Pept 240 pg/mL (0-125)
[2020-04-12 05:55] LABS: Free T4 Free Thyroxine 1.04 ng/dL (0.82-1.77)
[2020-04-12] MEDS: sodium chloride 0.9% 1,000 ML 999 ML IV ×2 (05:55→06:11)
--- NOTE | 2020-04-12 05:55 | W.ED.SOB ---
Documented by User: Aspen Go MD 04/12/20 07:33 HPI - SOB/Dyspnea General: Chief Complaint: Shortness of Breath/Dyspnea Stated Complaint: RESP DISTRESS Time Seen by Provider: 04/12/20 05:01 Source: EMS and old records reviewed Mode of arrival: EMS History of Present Illness: HPI Narrative: 59-year-old male with history of interstitial pulmonary fibrosis brought in by EMS after being found in acute respiratory distress, cyanotic. At baseline he is on 6 L nasal cannula O2. Initially was placed on CPAP, and then intubated in route. Symptoms had started this afternoon per his - worsening dyspnea, chest pain, fatigue. On reviewing his records and talking with the family, he was recently evaluated at [facility] in [place], deemed a non candidate for transplant MD elicited complaint: chest pain Onset (ago): hour(s) Review of Systems General: Reports: ROS unobtainable due to endotracheal tube PFSH ED PFSH: Medical History Diabetes Interstitial lung disease GILBERT (obstructive sleep apnea) Pleural effusion Type 2 diabetes mellitus Surgical History H/O elbow surgery History of ankle surgery Family History Father CAD (coronary artery disease) Cancer prostate Sister Cancer Social History Smoking and tobacco status: current every day smoker smokeless tobacco Second hand smoke exposure: No Alcohol intake: current Alcohol intake frequency: holidays/special occasions only Lives independently: Yes Household members: spouse Housing: House Marital status: Current occupational status: employed Current occupation: Self-Employed History of recent travel: No Current gender identity: Male Physical Exam Const: COMMON NORMALS: average body habitus GENERAL APPEARANCE: patient mechanically ventilated ORIENTATION/CONSCIOUSNESS: Yes Other orientation findings HENMT: COMMON NORMALS: normocephalic and atraumatic HEAD & SCALP: normocephalic and atraumatic; no contusion, no hematoma and no laceration Chest: COMMONS NORMALS: normal inspection of the chest and normal palpation of entire chest wall Breast/axilla inspection: Yes no chest deformity, asymmetry, normal contours, no nodules, masses, tenderness Resp: AUSCULTATION: crackles and diminished lung sounds Cardio: COMMON NORMALS: Peripheral pulses 2+ throughout RATE: tachycardic RHYTHM: abnormal rhythm PERIPHERAL PULSES: Peripheral pulses 2+ throughout GI: COMMON NORMALS: Normal to inspection, nondistended, normoactive bowel sounds present, Soft to palpation, no masses and no bruits; negative for No hepatosplenomegaly present INSPECTION: Yes abdominal wall ecchymosis (Faint ecchymosis left abdomen) PALPATION: Yes Soft to palpation, No Rigid due to palpation, No No hepatosplenomegaly present, No Hernia present, No Palpable mass present, No Pulsatile mass present and No Ascites present Extremity: GENERAL: Yes clubbing, No cyanosis, No edema, No mottling and Yes pallor Skin: COMMON NORMALS: no rashes or lesions noted, no wounds, turgor normal and no jaundice GENERAL SKIN EXAM: no rashes or lesions noted and turgor normal Course Vital Signs: Vital signs: Vital Signs Pulse Rate 125 H 04/12/20 06:55 Respiratory Rate 32 H 04/12/20 07:45 Blood Pressure 92/68 04/12/20 06:55 Pulse Oximetry 97 04/12/20 06:55 MDM - SOB/Dyspnea MDM Narrative: Medical decision making narrative: 59-year-old male with end-stage pulmonary fibrosis brought in by EMS in acute respiratory distress, intubated. Tachyarrhythmia/SVT in the 160s-170s on arrival, did not respond to cardioversion. Did respond to Cardizem IVP 20 mg. Continuous drip started. pH 7.02, PCO2 72, PaO2 171, bicarb 18.7 on 100% FiO2 , PEEP 14 End-tidal CO2 in the mid 80s Chest x-ray does not appear significantly changed from previous. D-dimer 11.07. Given the acute onset of worsened chest pain and dyspnea, will check CTA to rule out possible acute PE. Discussed case with [employer] TECHNICIAN at [facility] ICU -they do not have any bed availability, and also would not have anything additional to offer the patient, therefore they do not accept the transfer. Spoke with Dr. Garcia, pulmonology, who is familiar with this patient. He agrees to consult on the patient if he is admitted here, emphasizes comfort control. Agrees with IV antibiotics and steroids. Will be difficult to effectively ventilate this patient due to his severe underlying lung disease. Case was discussed with Dr. Major, she will notify the oncoming hospitalist of the admission. No ICU bed available at this time, will remain in the ED. Discussed the case and signed out to Dr. Pacheco. Lab Data: Attestation: I reviewed the patient's lab results. Lab results narrative: Leukocytosis, possibly secondary to recent steroids Labs: Lab Results 04/12/20 04/12/20 04/12/20 Range/Units 04:50 04:59 04:59 WBC 30.1 H (4.0-10.0) 10^3/ uL RBC 5.14 (4.1-5.3) 10^6/u L Hgb 15.6 (11.7-16.6) g/dL Hct 50.6 (42.0-52.0) % MCV 98.4 H (80-94) fL MCH 30.4 (28.0-34.0) pg MCHC 30.8 (30.0-36.0) g/dL RDW 13.9 (12.1-15.1) % Plt Count 230 (130-400) 10^3/c mm MPV 10.4 (7.4-10.4) fL Neut % (Auto) 58.4 % Lymph % (Auto) 30.6 % [place] % (Auto) 5.9 % Eos % (Auto) 0.2 % Baso % (Auto) 0.5 % Neut # (Auto) 17.55 H (1.8-7.7) 10^3/u L Lymph # (Auto) 9.2 H (0.8-4.8) 10^3/u L [place] # (Auto) 1.8 H (0.2-0.9) 10^3/u L Eos # (Auto) 0.1 (0.0-0.8) 10^3/u L Baso # (Auto) 0.2 H (0.0-0.1) 10^3/u L Nucleated RBC % (a uto) 0.1 % Nucleated RBCs # 0.0 /100WBC PT (12.1-14.9) SECO NDS INR (0.8-1.2) D-Dimer (0-0.59) ug/mIFE U Specimen Type Arterial Sample Site Radial, left ABG pH 7.02 L* (7.35-7.45) ABG pCO2 72.6 H* (35-45) mmHg ABG pO2 171.0 H (80.0-100.0) mmH g ABG HCO3 18.7 L (22-26) mmol/L ABG O2 Saturation 97.8 ABG Base Excess -13.8 L (-2.0-2.0) mmol/ L Sebastián Test Pos A-a O2 Gradient 59.7 H (5-10) mmHg Hematocrit 49.6 (42-52) % Hgb O2 Saturation 95.9 (95-100) % Carboxyhemoglobin 0.8 (0.4-20.1) %THgb Methemoglobin 1.1 (0.4-1.5) % Total Hemoglobin 16.2 (14-18) g/dL Sodium 139.0 136 (131-143) mmol/L Potassium 4.4 4.5 (3.5-5.0) mmol/L Glucose 521.0 H 500 H (70-115) mg/dL Ionized Calcium 1.2 (1.1-1.4) mmol/L O2 Delivery Device Vent O2 Liters/Min 14.0 % FiO2 100.0 % PEEP 14.0 cmH20 Academic Registrar ID Jlg Chloride 95 L (98-107) mmol/L Carbon Dioxide 18 L (22-29) mmol/L Anion Gap 27.5 H (5-19) BUN 34 H (8-23) mg/dL Creatinine 1.0 (0.7-1.2) mg/dL GFR Calculation 76.0 L (90-130) mL/min POC Glucose (70-110) mg/dL Calculated Osmolal ity 312 H (285-295) mOsm/k g Lactic Acid Calcium 8.9 (8.5-10.5) mg/dL Total Bilirubin 0.6 (0.15-1.2) mg/dL AST 131 H (0-40) U/L ALT 101 H (0-41) U/L Alkaline Phosphata se 171 H (40-130) IU/L Troponin T Gen 5 n g/L (0-15) ng/L NT-Pro-B Natriuret Pep (0-125) pg/mL Total Protein 6.7 (6.6-8.7) g/dL Albumin 3.9 (3.5-5.2) g/dL Globulin 2.8 (1.3-4.6) g/dL Free T4 1.04 (0.82-1.77) ng/d L Urine Color (Yellow) Urine Appearance (CLEAR) Urine pH (5-7) Ur Specific Gravit y (1.005-1.030) Urine Protein (Negative) Urine Glucose (UA) (Normal) Urine Ketones (Negative) Urine Blood (Negative) Urine Nitrate (Negative) Urine Bilirubin (Negative) Urine Urobilinogen (Negative) mg/dL Ur Leukocyte Gertrude ase (Negative) Urine RBC (0-2) /hpf Urine WBC (0-5) /hpf Ur Squamous Epith Cells (0-5) /hpf Amorphous Sediment Urine Bacteria (NONE) /hpf Urine Sperm /hpf Urine Opiates Scre en (Negative) ng/mL Ur Barbiturates Sc reen (Negative) ng/mL Ur Phencyclidine S crn (Negative) ng/mL Ur Amphetamines Sc reen (Negative) ng/mL U Benzodiazepines Scrn (Negative) ng/mL Urine Cocaine Scre en (Negative) ng/mL U Marijuana (THC) Screen (Negative) ng/mL SARS-CoV-2 Ag (Rap id) (Negative) 04/12/20 04/12/20 04/12/20 Range/Units 04:59 04:59 04:59 WBC (4.0-10.0) 10^3/ uL RBC (4.1-5.3) 10^6/u L Hgb (11.7-16.6) g/dL Hct (42.0-52.0) % MCV (80-94) fL MCH (28.0-34.0) pg MCHC (30.0-36.0) g/dL RDW (12.1-15.1) % Plt Count (130-400) 10^3/c mm MPV (7.4-10.4) fL Neut % (Auto) % Lymph % (Auto) % [place] % (Auto) % Eos % (Auto) % Baso % (Auto) % Neut # (Auto) (1.8-7.7) 10^3/u L Lymph # (Auto) (0.8-4.8) 10^3/u L [place] # (Auto) (0.2-0.9) 10^3/u L Eos # (Auto) (0.0-0.8) 10^3/u L Baso # (Auto) (0.0-0.1) 10^3/u L Nucleated RBC % (a uto) % Nucleated RBCs # /100WBC PT (12.1-14.9) SECO NDS INR (0.8-1.2) D-Dimer 11.07 H (0-0.59) ug/mIFE U Specimen Type Sample Site ABG pH (7.35-7.45) ABG pCO2 (35-45) mmHg ABG pO2 (80.0-100.0) mmH g ABG HCO3 (22-26) mmol/L ABG O2 Saturation ABG Base Excess (-2.0-2.0) mmol/ L Sebastián Test A-a O2 Gradient (5-10) mmHg Hematocrit (42-52) % Hgb O2 Saturation (95-100) % Carboxyhemoglobin (0.4-20.1) %THgb Methemoglobin (0.4-1.5) % Total Hemoglobin (14-18) g/dL Sodium (131-143) mmol/L Potassium (3.5-5.0) mmol/L Glucose (70-115) mg/dL Ionized Calcium (1.1-1.4) mmol/L O2 Delivery Device O2 Liters/Min % FiO2 % PEEP cmH20 Academic Registrar ID Chloride (98-107) mmol/L Carbon Dioxide (22-29) mmol/L Anion Gap (5-19) BUN (8-23) mg/dL Creatinine (0.7-1.2) mg/dL GFR Calculation (90-130) mL/min POC Glucose (70-110) mg/dL Calculated Osmolal ity (285-295) mOsm/k g Lactic Acid Calcium (8.5-10.5) mg/dL Total Bilirubin (0.15-1.2) mg/dL AST (0-40) U/L ALT (0-41) U/L Alkaline Phosphata se (40-130) IU/L Troponin T Gen 5 n g/L 81 H (0-15) ng/L NT-Pro-B Natriuret Pep 240 H (0-125) pg/mL Total Protein (6.6-8.7) g/dL Albumin (3.5-5.2) g/dL Globulin (1.3-4.6) g/dL Free T4 (0.82-1.77) ng/d L Urine Color (Yellow) Urine Appearance (CLEAR) Urine pH (5-7) Ur Specific Gravit y (1.005-1.030) Urine Protein (Negative) Urine Glucose (UA) (Normal) Urine Ketones (Negative) Urine Blood (Negative) Urine Nitrate (Negative) Urine Bilirubin (Negative) Urine Urobilinogen (Negative) mg/dL Ur Leukocyte Gertrude ase (Negative) Urine RBC (0-2) /hpf Urine WBC (0-5) /hpf Ur Squamous Epith Cells (0-5) /hpf Amorphous Sediment Urine Bacteria (NONE) /hpf Urine Sperm /hpf Urine Opiates Scre en (Negative) ng/mL Ur Barbiturates Sc reen (Negative) ng/mL Ur Phencyclidine S crn (Negative) ng/mL Ur Amphetamines Sc reen (Negative) ng/mL U Benzodiazepines Scrn (Negative) ng/mL Urine Cocaine Scre en (Negative) ng/mL U Marijuana (THC) Screen (Negative) ng/mL SARS-CoV-2 Ag (Rap id) (Negative) 04/12/20 04/12/20 04/12/20 Range/Units 04:59 05:55 05:55 WBC (4.0-10.0) 10^3/ uL RBC (4.1-5.3) 10^6/u L Hgb (11.7-16.6) g/dL Hct (42.0-52.0) % MCV (80-94) fL MCH (28.0-34.0) pg MCHC (30.0-36.0) g/dL RDW (12.1-15.1) % Plt Count (130-400) 10^3/c mm MPV (7.4-10.4) fL Neut % (Auto) % Lymph % (Auto) % [place] % (Auto) % Eos % (Auto) % Baso % (Auto) % Neut # (Auto) (1.8-7.7) 10^3/u L Lymph # (Auto) (0.8-4.8) 10^3/u L [place] # (Auto) (0.2-0.9) 10^3/u L Eos # (Auto) (0.0-0.8) 10^3/u L Baso # (Auto) (0.0-0.1) 10^3/u L Nucleated RBC % (a uto) % Nucleated RBCs # /100WBC PT 14.40 (12.1-14.9) SECO NDS INR 1.09 (0.8-1.2) D-Dimer (0-0.59) ug/mIFE U Specimen Type Sample Site ABG pH (7.35-7.45) ABG pCO2 (35-45) mmHg ABG pO2 (80.0-100.0) mmH g ABG HCO3 (22-26) mmol/L ABG O2 Saturation ABG Base Excess (-2.0-2.0) mmol/ L Sebastián Test A-a O2 Gradient (5-10) mmHg Hematocrit (42-52) % Hgb O2 Saturation (95-100) % Carboxyhemoglobin (0.4-20.1) %THgb Methemoglobin (0.4-1.5) % Total Hemoglobin (14-18) g/dL Sodium (131-143) mmol/L Potassium (3.5-5.0) mmol/L Glucose (70-115) mg/dL Ionized Calcium (1.1-1.4) mmol/L O2 Delivery Device O2 Liters/Min % FiO2 % PEEP cmH20 Academic Registrar ID Chloride (98-107) mmol/L Carbon Dioxide (22-29) mmol/L Anion Gap (5-19) BUN (8-23) mg/dL Creatinine (0.7-1.2) mg/dL GFR Calculation (90-130) mL/min POC Glucose (70-110) mg/dL Calculated Osmolal ity (285-295) mOsm/k g Lactic Acid Calcium (8.5-10.5) mg/dL Total Bilirubin (0.15-1.2) mg/dL AST (0-40) U/L ALT (0-41) U/L Alkaline Phosphata se (40-130) IU/L Troponin T Gen 5 n g/L (0-15) ng/L NT-Pro-B Natriuret Pep (0-125) pg/mL Total Protein (6.6-8.7) g/dL Albumin (3.5-5.2) g/dL Globulin (1.3-4.6) g/dL Free T4 (0.82-1.77) ng/d L Urine Color Yellow (Yellow) Urine Appearance Cloudy (CLEAR) Urine pH 5 (5-7) Ur Specific Gravit y 1.020 (1.005-1.030) Urine Protein 1+ H (Negative) Urine Glucose (UA) 4+ H (Normal) Urine Ketones Negative (Negative) Urine Blood 2+ H (Negative) Urine Nitrate Negative (Negative) Urine Bilirubin Neg (Negative) Urine Urobilinogen Norm (Negative) mg/dL Ur Leukocyte Gertrude ase Negative (Negative) Urine RBC 5-10 H (0-2) /hpf Urine WBC 0-4 H (0-5) /hpf Ur Squamous Epith Cells 5-10 H (0-5) /hpf Amorphous Sediment Not Reportable Urine Bacteria 1+ H (NONE) /hpf Urine Sperm 4+ /hpf Urine Opiates Scre en Negative (Negative) ng/mL Ur Barbiturates Sc reen Negative (Negative) ng/mL Ur Phencyclidine S crn Negative (Negative) ng/mL Ur Amphetamines Sc reen Negative (Negative) ng/mL U Benzodiazepines Scrn Negative (Negative) ng/mL Urine Cocaine Scre en Negative (Negative) ng/mL U Marijuana (THC) Screen Negative (Negative) ng/mL SARS-CoV-2 Ag (Rap id) (Negative) 04/12/20 04/12/20 04/12/20 Range/Units 05:55 06:00 06:00 WBC (4.0-10.0) 10^3/ uL RBC (4.1-5.3) 10^6/u L Hgb (11.7-16.6) g/dL Hct (42.0-52.0) % MCV (80-94) fL MCH (28.0-34.0) pg MCHC (30.0-36.0) g/dL RDW (12.1-15.1) % Plt Count (130-400) 10^3/c mm MPV (7.4-10.4) fL Neut % (Auto) % Lymph % (Auto) % [place] % (Auto) % Eos % (Auto) % Baso % (Auto) % Neut # (Auto) (1.8-7.7) 10^3/u L Lymph # (Auto) (0.8-4.8) 10^3/u L [place] # (Auto) (0.2-0.9) 10^3/u L Eos # (Auto) (0.0-0.8) 10^3/u L Baso # (Auto) (0.0-0.1) 10^3/u L Nucleated RBC % (a uto) % Nucleated RBCs # /100WBC PT (12.1-14.9) SECO NDS INR (0.8-1.2) D-Dimer (0-0.59) ug/mIFE U Specimen Type Sample Site ABG pH (7.35-7.45) ABG pCO2 (35-45) mmHg ABG pO2 (80.0-100.0) mmH g ABG HCO3 (22-26) mmol/L ABG O2 Saturation ABG Base Excess (-2.0-2.0) mmol/ L Sebastián Test A-a O2 Gradient (5-10) mmHg Hematocrit (42-52) % Hgb O2 Saturation (95-100) % Carboxyhemoglobin (0.4-20.1) %THgb Methemoglobin (0.4-1.5) % Total Hemoglobin (14-18) g/dL Sodium (131-143) mmol/L Potassium (3.5-5.0) mmol/L Glucose (70-115) mg/dL Ionized Calcium (1.1-1.4) mmol/L O2 Delivery Device O2 Liters/Min % FiO2 % PEEP cmH20 Academic Registrar ID Chloride (98-107) mmol/L Carbon Dioxide (22-29) mmol/L Anion Gap (5-19) BUN (8-23) mg/dL Creatinine (0.7-1.2) mg/dL GFR Calculation (90-130) mL/min POC Glucose (70-110) mg/dL Calculated Osmolal ity (285-295) mOsm/k g Lactic Acid Cancelled 6.7 H* Calcium (8.5-10.5) mg/dL Total Bilirubin (0.15-1.2) mg/dL AST (0-40) U/L ALT (0-41) U/L Alkaline Phosphata se (40-130) IU/L Troponin T Gen 5 n g/L (0-15) ng/L NT-Pro-B Natriuret Pep (0-125) pg/mL Total Protein (6.6-8.7) g/dL Albumin (3.5-5.2) g/dL Globulin (1.3-4.6) g/dL Free T4 (0.82-1.77) ng/d L Urine Color (Yellow) Urine Appearance (CLEAR) Urine pH (5-7) Ur Specific Gravit y (1.005-1.030) Urine Protein (Negative) Urine Glucose (UA) (Normal) Urine Ketones (Negative) Urine Blood (Negative) Urine Nitrate (Negative) Urine Bilirubin (Negative) Urine Urobilinogen (Negative) mg/dL Ur Leukocyte Gertrude ase (Negative) Urine RBC (0-2) /hpf Urine WBC (0-5) /hpf Ur Squamous Epith Cells (0-5) /hpf Amorphous Sediment Urine Bacteria (NONE) /hpf Urine Sperm /hpf Urine Opiates Scre en (Negative) ng/mL Ur Barbiturates Sc reen (Negative) ng/mL Ur Phencyclidine S crn (Negative) ng/mL Ur Amphetamines Sc reen (Negative) ng/mL U Benzodiazepines Scrn (Negative) ng/mL Urine Cocaine Scre en (Negative) ng/mL U Marijuana (THC) Screen (Negative) ng/mL SARS-CoV-2 Ag (Rap id) Negative (Negative) 04/12/20 04/12/20 Range/Units 07:20 07:26 WBC (4.0-10.0) 10^3/ uL RBC (4.1-5.3) 10^6/u L Hgb (11.7-16.6) g/dL Hct (42.0-52.0) % MCV (80-94) fL MCH (28.0-34.0) pg MCHC (30.0-36.0) g/dL RDW (12.1-15.1) % Plt Count (130-400) 10^3/c mm MPV (7.4-10.4) fL Neut % (Auto) % Lymph % (Auto) % [place] % (Auto) % Eos % (Auto) % Baso % (Auto) % Neut # (Auto) (1.8-7.7) 10^3/u L Lymph # (Auto) (0.8-4.8) 10^3/u L [place] # (Auto) (0.2-0.9) 10^3/u L Eos # (Auto) (0.0-0.8) 10^3/u L Baso # (Auto) (0.0-0.1) 10^3/u L Nucleated RBC % (a uto) % Nucleated RBCs # /100WBC PT (12.1-14.9) SECO NDS INR (0.8-1.2) D-Dimer (0-0.59) ug/mIFE U Specimen Type Arterial Sample Site Radial, right ABG pH (7.35-7.45) ABG pCO2 (35-45) mmHg ABG pO2 156.0 H (80.0-100.0) mmH g ABG HCO3 22.6 (22-26) mmol/L ABG O2 Saturation 97.6 ABG Base Excess -11.1 L (-2.0-2.0) mmol/ L Sebastián Test Pos A-a O2 Gradient 59.2 H (5-10) mmHg Hematocrit 45.2 (42-52) % Hgb O2 Saturation 95.6 (95-100) % Carboxyhemoglobin 1.0 (0.4-20.1) %THgb Methemoglobin 1.1 (0.4-1.5) % Total Hemoglobin 14.7 (14-18) g/dL Sodium 140.0 (131-143) mmol/L Potassium 4.4 (3.5-5.0) mmol/L Glucose 476.0 H (70-115) mg/dL Ionized Calcium 1.2 (1.1-1.4) mmol/L O2 Delivery Device Ambu O2 Liters/Min % FiO2 100.0 % PEEP cmH20 Academic Registrar ID Amh Chloride (98-107) mmol/L Carbon Dioxide (22-29) mmol/L Anion Gap (5-19) BUN (8-23) mg/dL Creatinine (0.7-1.2) mg/dL GFR Calculation (90-130) mL/min POC Glucose 445 H (70-110) mg/dL Calculated Osmolal ity (285-295) mOsm/k g Lactic Acid Calcium (8.5-10.5) mg/dL Total Bilirubin (0.15-1.2) mg/dL AST (0-40) U/L ALT (0-41) U/L Alkaline Phosphata se (40-130) IU/L Troponin T Gen 5 n g/L (0-15) ng/L NT-Pro-B Natriuret Pep (0-125) pg/mL Total Protein (6.6-8.7) g/dL Albumin (3.5-5.2) g/dL Globulin (1.3-4.6) g/dL Free T4 (0.82-1.77) ng/d L Urine Color (Yellow) Urine Appearance (CLEAR) Urine pH (5-7) Ur Specific Gravit y (1.005-1.030) Urine Protein (Negative) Urine Glucose (UA) (Normal) Urine Ketones (Negative) Urine Blood (Negative) Urine Nitrate (Negative) Urine Bilirubin (Negative) Urine Urobilinogen (Negative) mg/dL Ur Leukocyte Gertrude ase (Negative) Urine RBC (0-2) /hpf Urine WBC (0-5) /hpf Ur Squamous Epith Cells (0-5) /hpf Amorphous Sediment Urine Bacteria (NONE) /hpf Urine Sperm /hpf Urine Opiates Scre en (Negative) ng/mL Ur Barbiturates Sc reen (Negative) ng/mL Ur Phencyclidine S crn (Negative) ng/mL Ur Amphetamines Sc reen (Negative) ng/mL U Benzodiazepines Scrn (Negative) ng/mL Urine Cocaine Scre en (Negative) ng/mL U Marijuana (THC) Screen (Negative) ng/mL SARS-CoV-2 Ag (Rap id) (Negative) EKG Data^: EKG 1: Attestation: I personally reviewed and interpreted this EKG as follows: EKG Interpretation Date: 04/12/20 EKG interpretation time: 04:55 Interpretation: SVT, rate 160s normal axis EKG 2: EKG Interpretation Date: 04/12/20 EKG interpretation time: 05:35 Prior EKG tracings: available for review Interpretation: Atrial flutter with RVR, rate 138. QRS 145, QTc [address]. No acute ST elevation Discharge Plan Discharge Patient Disposition: Clinical Impression: Interstitial lung disease, Hyperglycemia, Tachyarrhythmia, Pulmonary embolism Respiratory failure with hypoxia and hypercapnia Qualifiers: Chronicity: acute on chronic Qualified Code(s): J96.21 - Acute and chronic respiratory failure with hypoxia Probable Cause of Probable cause of : Cardiac arrest Sign Out Sign Out Data: Patient Sign Out occurred on 04/12/20 at 08:14. Patient's care was discussed, and care was transferred from Aspen Go MD to Joel Pacheco DO. Sign Out Comment: Admission pending open ICU bed. The case has been discussed with Dr. Garcia, pulmonology, who will see the patient once admitted. CTA chest pending Last updated by Aspen Go MD at 04/12/20 07:31 Coding Level of Care Code ED Admittance Attendant for Chg Fwd Exam Comprehensive Documented by User: Joel Pacheco DO 04/12/20 10:26 HPI - SOB/Dyspnea General: Chief Complaint: Shortness of Breath/Dyspnea Stated Complaint: RESP DISTRESS Time Seen by Provider: 04/12/20 05:01 PFS ED PFSH: Medical History Diabetes Interstitial lung disease GILBERT (obstructive sleep apnea) Pleural effusion Type 2 diabetes mellitus Surgical History H/O elbow surgery History of ankle surgery Family History Father CAD (coronary artery disease) Cancer prostate Sister Cancer Social History Smoking and tobacco status: current every day smoker smokeless tobacco Second hand smoke exposure: No Alcohol intake: current Alcohol intake frequency: holidays/special occasions only Lives independently: Yes Household members: spouse Housing: House Marital status: Current occupational status: employed Current occupation: Self-Employed History of recent travel: No Current gender identity: Male Course Vital Signs: Vital signs: Vital Signs Pulse Rate 125 H 04/12/20 06:55 Respiratory Rate 32 H 04/12/20 07:45 Blood Pressure 92/68 04/12/20 06:55 Pulse Oximetry 97 04/12/20 06:55 MDM - SOB/Dyspnea MDM Narrative: Medical decision making narrative: Care assumed at change of shift reviewed case with Dr. Go. Reviewed with the family at this point he does not qualify for a transplant he is extremely acutely ill with cardiac issues attendant as well. Family wished to proceed and see if he would improve. When I return from the family conference to the exam room he had begun to deteriorate and had but was braiding down and coded. We resuscitated him with 2 of epi and 1 of atropine. Heart rate improved and we had to restart the diltiazem however after period of time he began to decompensate again the diltiazem was shut off he began to become more more bradycardic discussed with the family. We discussed his potential for recovery long-term return back to his normal day-to-day life given his rapid progression of pulmonary fibrosis very unlikely he would be able to turn from this episode back to his normal activities. We recommended considering not pursuing any more aggressive therapy but remaining on the ventilator. They agreed to this and decided they did not want him to be coded again. He continued to decompensate and eventually he bradycardia down into asystole. Asystole was confirmed at the bedside there is no auscultated bowel heart function no palpable pulse. As per the family's wishes with them at the bedside the ventilator was stopped and all support drips stopped. Family questions answered to their satisfaction. Time of 801 cause of idiopathic pulmonary fibrosis Lab Data: Labs: Lab Results 04/12/20 04/12/20 04/12/20 Range/Units 04:50 04:59 04:59 WBC 30.1 H (4.0-10.0) 10^3/ uL RBC 5.14 (4.1-5.3) 10^6/u L Hgb 15.6 (11.7-16.6) g/dL Hct 50.6 (42.0-52.0) % MCV 98.4 H (80-94) fL MCH 30.4 (28.0-34.0) pg MCHC 30.8 (30.0-36.0) g/dL RDW 13.9 (12.1-15.1) % Plt Count 230 (130-400) 10^3/c mm MPV 10.4 (7.4-10.4) fL Neut % (Auto) 58.4 % Lymph % (Auto) 30.6 % [place] % (Auto) 5.9 % Eos % (Auto) 0.2 % Baso % (Auto) 0.5 % Neut # (Auto) 17.55 H (1.8-7.7) 10^3/u L Lymph # (Auto) 9.2 H (0.8-4.8) 10^3/u L [place] # (Auto) 1.8 H (0.2-0.9) 10^3/u L Eos # (Auto) 0.1 (0.0-0.8) 10^3/u L Baso # (Auto) 0.2 H (0.0-0.1) 10^3/u L Nucleated RBC % (a uto) 0.1 % Nucleated RBCs # 0.0 /100WBC PT (12.1-14.9) SECO NDS INR (0.8-1.2) D-Dimer (0-0.59) ug/mIFE U Specimen Type Arterial Sample Site Radial, left ABG pH 7.02 L* (7.35-7.45) ABG pCO2 72.6 H* (35-45) mmHg ABG pO2 171.0 H (80.0-100.0) mmH g ABG HCO3 18.7 L (22-26) mmol/L ABG O2 Saturation 97.8 ABG Base Excess -13.8 L (-2.0-2.0) mmol/ L [place] Test Pos A-a O2 Gradient 59.7 H (5-10) mmHg Hematocrit 49.6 (42-52) % Hgb O2 Saturation 95.9 (95-100) % Carboxyhemoglobin 0.8 (0.4-20.1) %THgb Methemoglobin 1.1 (0.4-1.5) % Total Hemoglobin 16.2 (14-18) g/dL Sodium 139.0 136 (131-143) mmol/L Potassium 4.4 4.5 (3.5-5.0) mmol/L Glucose 521.0 H 500 H (70-115) mg/dL Ionized Calcium 1.2 (1.1-1.4) mmol/L O2 Delivery Device Vent O2 Liters/Min 14.0 % FiO2 100.0 % PEEP 14.0 cmH20 Academic Registrar ID [id number] Chloride 95 L (98-107) mmol/L Carbon Dioxide 18 L (22-29) mmol/L Anion Gap 27.5 H (5-19) BUN 34 H (8-23) mg/dL Creatinine 1.0 (0.7-1.2) mg/dL GFR Calculation 76.0 L (90-130) mL/min POC Glucose (70-110) mg/dL Calculated Osmolal ity 312 H (285-295) mOsm/k g Lactic Acid Calcium 8.9 (8.5-10.5) mg/dL Total Bilirubin 0.6 (0.15-1.2) mg/dL AST 131 H (0-40) U/L ALT 101 H (0-41) U/L Alkaline Phosphata se 171 H (40-130) IU/L Troponin T Gen 5 n g/L (0-15) ng/L NT-Pro-B Natriuret Pep (0-125) pg/mL Total Protein 6.7 (6.6-8.7) g/dL Albumin 3.9 (3.5-5.2) g/dL Globulin 2.8 (1.3-4.6) g/dL Free T4 1.04 (0.82-1.77) ng/d L Urine Color (Yellow) Urine Appearance (CLEAR) Urine pH (5-7) Ur Specific Gravit y (1.005-1.030) Urine Protein (Negative) Urine Glucose (UA) (Normal) Urine Ketones (Negative) Urine Blood (Negative) Urine Nitrate (Negative) Urine Bilirubin (Negative) Urine Urobilinogen (Negative) mg/dL Ur Leukocyte Gertrude ase (Negative) Urine RBC (0-2) /hpf Urine WBC (0-5) /hpf Ur Squamous Epith Cells (0-5) /hpf Amorphous Sediment Urine Bacteria (NONE) /hpf Urine Sperm /hpf Urine Opiates Scre en (Negative) ng/mL Ur Barbiturates Sc reen (Negative) ng/mL Ur Phencyclidine S crn (Negative) ng/mL Ur Amphetamines Sc reen (Negative) ng/mL U Benzodiazepines Scrn (Negative) ng/mL Urine Cocaine Scre en (Negative) ng/mL U Marijuana (THC) Screen (Negative) ng/mL SARS-CoV-2 Ag (Rap id) (Negative) 04/12/20 04/12/20 04/12/20 Range/Units 04:59 04:59 04:59 WBC (4.0-10.0) 10^3/ uL RBC (4.1-5.3) 10^6/u L Hgb (11.7-16.6) g/dL Hct (42.0-52.0) % MCV (80-94) fL MCH (28.0-34.0) pg MCHC (30.0-36.0) g/dL RDW (12.1-15.1) % Plt Count (130-400) 10^3/c mm MPV (7.4-10.4) fL Neut % (Auto) % Lymph % (Auto) % [place] % (Auto) % Eos % (Auto) % Baso % (Auto) % Neut # (Auto) (1.8-7.7) 10^3/u L Lymph # (Auto) (0.8-4.8) 10^3/u L [place] # (Auto) (0.2-0.9) 10^3/u L Eos # (Auto) (0.0-0.8) 10^3/u L Baso # (Auto) (0.0-0.1) 10^3/u L Nucleated RBC % (a uto) % Nucleated RBCs # /100WBC PT (12.1-14.9) SECO NDS INR (0.8-1.2) D-Dimer 11.07 H (0-0.59) ug/mIFE U Specimen Type Sample Site ABG pH (7.35-7.45) ABG pCO2 (35-45) mmHg ABG pO2 (80.0-100.0) mmH g ABG HCO3 (22-26) mmol/L ABG O2 Saturation ABG Base Excess (-2.0-2.0) mmol/ L Sebastián Test A-a O2 Gradient (5-10) mmHg Hematocrit (42-52) % Hgb O2 Saturation (95-100) % Carboxyhemoglobin (0.4-20.1) %THgb Methemoglobin (0.4-1.5) % Total Hemoglobin (14-18) g/dL Sodium (131-143) mmol/L Potassium (3.5-5.0) mmol/L Glucose (70-115) mg/dL Ionized Calcium (1.1-1.4) mmol/L O2 Delivery Device O2 Liters/Min % FiO2 % PEEP cmH20 Academic Registrar ID Chloride (98-107) mmol/L Carbon Dioxide (22-29) mmol/L Anion Gap (5-19) BUN (8-23) mg/dL Creatinine (0.7-1.2) mg/dL GFR Calculation (90-130) mL/min POC Glucose (70-110) mg/dL Calculated Osmolal ity (285-295) mOsm/k g Lactic Acid Calcium (8.5-10.5) mg/dL Total Bilirubin (0.15-1.2) mg/dL AST (0-40) U/L ALT (0-41) U/L Alkaline Phosphata se (40-130) IU/L Troponin T Gen 5 n g/L 81 H (0-15) ng/L NT-Pro-B Natriuret Pep 240 H (0-125) pg/mL Total Protein (6.6-8.7) g/dL Albumin (3.5-5.2) g/dL Globulin (1.3-4.6) g/dL Free T4 (0.82-1.77) ng/d L Urine Color (Yellow) Urine Appearance (CLEAR) Urine pH (5-7) Ur Specific Gravit y (1.005-1.030) Urine Protein (Negative) Urine Glucose (UA) (Normal) Urine Ketones (Negative) Urine Blood (Negative) Urine Nitrate (Negative) Urine Bilirubin (Negative) Urine Urobilinogen (Negative) mg/dL Ur Leukocyte Gertrude ase (Negative) Urine RBC (0-2) /hpf Urine WBC (0-5) /hpf Ur Squamous Epith Cells (0-5) /hpf Amorphous Sediment Urine Bacteria (NONE) /hpf Urine Sperm /hpf Urine Opiates Scre en (Negative) ng/mL Ur Barbiturates Sc reen (Negative) ng/mL Ur Phencyclidine S crn (Negative) ng/mL Ur Amphetamines Sc reen (Negative) ng/mL U Benzodiazepines Scrn (Negative) ng/mL Urine Cocaine Scre en (Negative) ng/mL U Marijuana (THC) Screen (Negative) ng/mL SARS-CoV-2 Ag (Rap id) (Negative) 04/12/20 04/12/20 04/12/20 Range/Units 04:59 05:55 05:55 WBC (4.0-10.0) 10^3/ uL RBC (4.1-5.3) 10^6/u L Hgb (11.7-16.6) g/dL Hct (42.0-52.0) % MCV (80-94) fL MCH (28.0-34.0) pg MCHC (30.0-36.0) g/dL RDW (12.1-15.1) % Plt Count (130-400) 10^3/c mm MPV (7.4-10.4) fL Neut % (Auto) % Lymph % (Auto) % [place] % (Auto) % Eos % (Auto) % Baso % (Auto) % Neut # (Auto) (1.8-7.7) 10^3/u L Lymph # (Auto) (0.8-4.8) 10^3/u L [place] # (Auto) (0.2-0.9) 10^3/u L Eos # (Auto) (0.0-0.8) 10^3/u L Baso # (Auto) (0.0-0.1) 10^3/u L Nucleated RBC % (a uto) % Nucleated RBCs # /100WBC PT 14.40 (12.1-14.9) SECO NDS INR 1.09 (0.8-1.2) D-Dimer (0-0.59) ug/mIFE U Specimen Type Sample Site ABG pH (7.35-7.45) ABG pCO2 (35-45) mmHg ABG pO2 (80.0-100.0) mmH g ABG HCO3 (22-26) mmol/L ABG O2 Saturation ABG Base Excess (-2.0-2.0) mmol/ L Sebastián Test A-a O2 Gradient (5-10) mmHg Hematocrit (42-52) % Hgb O2 Saturation (95-100) % Carboxyhemoglobin (0.4-20.1) %THgb Methemoglobin (0.4-1.5) % Total Hemoglobin (14-18) g/dL Sodium (131-143) mmol/L Potassium (3.5-5.0) mmol/L Glucose (70-115) mg/dL Ionized Calcium (1.1-1.4) mmol/L O2 Delivery Device O2 Liters/Min % FiO2 % PEEP cmH20 Academic Registrar ID Chloride (98-107) mmol/L Carbon Dioxide (22-29) mmol/L Anion Gap (5-19) BUN (8-23) mg/dL Creatinine (0.7-1.2) mg/dL GFR Calculation (90-130) mL/min POC Glucose (70-110) mg/dL Calculated Osmolal ity (285-295) mOsm/k g Lactic Acid Calcium (8.5-10.5) mg/dL Total Bilirubin (0.15-1.2) mg/dL AST (0-40) U/L ALT (0-41) U/L Alkaline Phosphata se (40-130) IU/L Troponin T Gen 5 n g/L (0-15) ng/L NT-Pro-B Natriuret Pep (0-125) pg/mL Total Protein (6.6-8.7) g/dL Albumin (3.5-5.2) g/dL Globulin (1.3-4.6) g/dL Free T4 (0.82-1.77) ng/d L Urine Color Yellow (Yellow) Urine Appearance Cloudy (CLEAR) Urine pH 5 (5-7) Ur Specific Gravit y 1.020 (1.005-1.030) Urine Protein 1+ H (Negative) Urine Glucose (UA) 4+ H (Normal) Urine Ketones Negative (Negative) Urine Blood 2+ H (Negative) Urine Nitrate Negative (Negative) Urine Bilirubin Neg (Negative) Urine Urobilinogen Norm (Negative) mg/dL Ur Leukocyte Gertrude ase Negative (Negative) Urine RBC 5-10 H (0-2) /hpf Urine WBC 0-4 H (0-5) /hpf Ur Squamous Epith Cells 5-10 H (0-5) /hpf Amorphous Sediment Not Reportable Urine Bacteria 1+ H (NONE) /hpf Urine Sperm 4+ /hpf Urine Opiates Scre en Negative (Negative) ng/mL Ur Barbiturates Sc reen Negative (Negative) ng/mL Ur Phencyclidine S crn Negative (Negative) ng/mL Ur Amphetamines Sc reen Negative (Negative) ng/mL U Benzodiazepines Scrn Negative (Negative) ng/mL Urine Cocaine Scre en Negative (Negative) ng/mL U Marijuana (THC) Screen Negative (Negative) ng/mL SARS-CoV-2 Ag (Rap id) (Negative) 04/12/20 04/12/20 04/12/20 Range/Units 05:55 06:00 06:00 WBC (4.0-10.0) 10^3/ uL RBC (4.1-5.3) 10^6/u L Hgb (11.7-16.6) g/dL Hct (42.0-52.0) % MCV (80-94) fL MCH (28.0-34.0) pg MCHC (30.0-36.0) g/dL RDW (12.1-15.1) % Plt Count (130-400) 10^3/c mm MPV (7.4-10.4) fL Neut % (Auto) % Lymph % (Auto) % [place] % (Auto) % Eos % (Auto) % Baso % (Auto) % Neut # (Auto) (1.8-7.7) 10^3/u L Lymph # (Auto) (0.8-4.8) 10^3/u L [place] # (Auto) (0.2-0.9) 10^3/u L Eos # (Auto) (0.0-0.8) 10^3/u L Baso # (Auto) (0.0-0.1) 10^3/u L Nucleated RBC % (a uto) % Nucleated RBCs # /100WBC PT (12.1-14.9) SECO NDS INR (0.8-1.2) D-Dimer (0-0.59) ug/mIFE U Specimen Type Sample Site ABG pH (7.35-7.45) ABG pCO2 (35-45) mmHg ABG pO2 (80.0-100.0) mmH g ABG HCO3 (22-26) mmol/L ABG O2 Saturation ABG Base Excess (-2.0-2.0) mmol/ L Sebastián Test A-a O2 Gradient (5-10) mmHg Hematocrit (42-52) % Hgb O2 Saturation (95-100) % Carboxyhemoglobin (0.4-20.1) %THgb Methemoglobin (0.4-1.5) % Total Hemoglobin (14-18) g/dL Sodium (131-143) mmol/L Potassium (3.5-5.0) mmol/L Glucose (70-115) mg/dL Ionized Calcium (1.1-1.4) mmol/L O2 Delivery Device O2 Liters/Min % FiO2 % PEEP cmH20 Academic Registrar ID Chloride (98-107) mmol/L Carbon Dioxide (22-29) mmol/L Anion Gap (5-19) BUN (8-23) mg/dL Creatinine (0.7-1.2) mg/dL GFR Calculation (90-130) mL/min POC Glucose (70-110) mg/dL Calculated Osmolal ity (285-295) mOsm/k g Lactic Acid Cancelled 6.7 H* Calcium (8.5-10.5) mg/dL Total Bilirubin (0.15-1.2) mg/dL AST (0-40) U/L ALT (0-41) U/L Alkaline Phosphata se (40-130) IU/L Troponin T Gen 5 n g/L (0-15) ng/L NT-Pro-B Natriuret Pep (0-125) pg/mL Total Protein (6.6-8.7) g/dL Albumin (3.5-5.2) g/dL Globulin (1.3-4.6) g/dL Free T4 (0.82-1.77) ng/d L Urine Color (Yellow) Urine Appearance (CLEAR) Urine pH (5-7) Ur Specific Gravit y (1.005-1.030) Urine Protein (Negative) Urine Glucose (UA) (Normal) Urine Ketones (Negative) Urine Blood (Negative) Urine Nitrate (Negative) Urine Bilirubin (Negative) Urine Urobilinogen (Negative) mg/dL Ur Leukocyte Gertrude ase (Negative) Urine RBC (0-2) /hpf Urine WBC (0-5) /hpf Ur Squamous Epith Cells (0-5) /hpf Amorphous Sediment Urine Bacteria (NONE) /hpf Urine Sperm /hpf Urine Opiates Scre en (Negative) ng/mL Ur Barbiturates Sc reen (Negative) ng/mL Ur Phencyclidine S crn (Negative) ng/mL Ur Amphetamines Sc reen (Negative) ng/mL U Benzodiazepines Scrn (Negative) ng/mL Urine Cocaine Scre en (Negative) ng/mL U Marijuana (THC) Screen (Negative) ng/mL SARS-CoV-2 Ag (Rap id) Negative (Negative) 04/12/20 04/12/20 Range/Units 07:20 07:26 WBC (4.0-10.0) 10^3/ uL RBC (4.1-5.3) 10^6/u L Hgb (11.7-16.6) g/dL Hct (42.0-52.0) % MCV (80-94) fL MCH (28.0-34.0) pg MCHC (30.0-36.0) g/dL RDW (12.1-15.1) % Plt Count (130-400) 10^3/c mm MPV (7.4-10.4) fL Neut % (Auto) % Lymph % (Auto) % [place] % (Auto) % Eos % (Auto) % Baso % (Auto) % Neut # (Auto) (1.8-7.7) 10^3/u L Lymph # (Auto) (0.8-4.8) 10^3/u L [place] # (Auto) (0.2-0.9) 10^3/u L Eos # (Auto) (0.0-0.8) 10^3/u L Baso # (Auto) (0.0-0.1) 10^3/u L Nucleated RBC % (a uto) % Nucleated RBCs # /100WBC PT (12.1-14.9) SECO NDS INR (0.8-1.2) D-Dimer (0-0.59) ug/mIFE U Specimen Type Arterial Sample Site Radial, right ABG pH (7.35-7.45) ABG pCO2 (35-45) mmHg ABG pO2 156.0 H (80.0-100.0) mmH g ABG HCO3 22.6 (22-26) mmol/L ABG O2 Saturation 97.6 ABG Base Excess -11.1 L (-2.0-2.0) mmol/ L Sebastián Test Pos A-a O2 Gradient 59.2 H (5-10) mmHg Hematocrit 45.2 (42-52) % Hgb O2 Saturation 95.6 (95-100) % Carboxyhemoglobin 1.0 (0.4-20.1) %THgb Methemoglobin 1.1 (0.4-1.5) % Total Hemoglobin 14.7 (14-18) g/dL Sodium 140.0 (131-143) mmol/L Potassium 4.4 (3.5-5.0) mmol/L Glucose 476.0 H (70-115) mg/dL Ionized Calcium 1.2 (1.1-1.4) mmol/L O2 Delivery Device Ambu O2 Liters/Min % FiO2 100.0 % PEEP cmH20 Academic Registrar ID Amh Chloride (98-107) mmol/L Carbon Dioxide (22-29) mmol/L Anion Gap (5-19) BUN (8-23) mg/dL Creatinine (0.7-1.2) mg/dL GFR Calculation (90-130) mL/min POC Glucose 445 H (70-110) mg/dL Calculated Osmolal ity (285-295) mOsm/k g Lactic Acid Calcium (8.5-10.5) mg/dL Total Bilirubin (0.15-1.2) mg/dL AST (0-40) U/L ALT (0-41) U/L Alkaline Phosphata se (40-130) IU/L Troponin T Gen 5 n g/L (0-15) ng/L NT-Pro-B Natriuret Pep (0-125) pg/mL Total Protein (6.6-8.7) g/dL Albumin (3.5-5.2) g/dL Globulin (1.3-4.6) g/dL Free T4 (0.82-1.77) ng/d L Urine Color (Yellow) Urine Appearance (CLEAR) Urine pH (5-7) Ur Specific Gravit y (1.005-1.030) Urine Protein (Negative) Urine Glucose (UA) (Normal) Urine Ketones (Negative) Urine Blood (Negative) Urine Nitrate (Negative) Urine Bilirubin (Negative) Urine Urobilinogen (Negative) mg/dL Ur Leukocyte Gertrude ase (Negative) Urine RBC (0-2) /hpf Urine WBC (0-5) /hpf Ur Squamous Epith Cells (0-5) /hpf Amorphous Sediment Urine Bacteria (NONE) /hpf Urine Sperm /hpf Urine Opiates Scre en (Negative) ng/mL Ur Barbiturates Sc reen (Negative) ng/mL Ur Phencyclidine S crn (Negative) ng/mL Ur Amphetamines Sc reen (Negative) ng/mL U Benzodiazepines Scrn (Negative) ng/mL Urine Cocaine Scre en (Negative) ng/mL U Marijuana (THC) Screen (Negative) ng/mL SARS-CoV-2 Ag (Rap id) (Negative) Discharge Plan Discharge Patient Disposition: Clinical Impression: Interstitial lung disease, Hyperglycemia, Tachyarrhythmia, Pulmonary embolism Respiratory failure with hypoxia and hypercapnia Qualifiers: Chronicity: acute on chronic Qualified Code(s): J96.21 - Acute and chronic respiratory failure with hypoxia Probable Cause of Probable cause of : Cardiac arrest Sign Out Sign Out Data: Patient Sign Out occurred on 04/12/20 at 08:14. Patient's care was discussed, and care was transferred from Aspen Go MD to Joel Pacheco DO. Sign Out Comment: Admission pending open ICU bed. The case has been discussed with Dr. Garcia, pulmonology, who will see the patient once admitted. CTA chest pending Last updated by Aspen Go MD at 04/12/20 07:31 Coding Level of Care Code ED Admittance Attendant for Chg Fwd Exam Comprehensive
[2020-04-12] MEDS: propofol 1,000 MG/100 ML INJ 2.7 MG IV (05:56)
[2020-04-12 06:13] LABS: Slide Review Slide Review Perform
[2020-04-12 06:37] LABS: D Dimer 11.07 ug/mIFEU (0-0.59)
[2020-04-12 06:48] LABS: Bilirubin Urine Neg (Negative); Blood Urine 2+ (Negative); Glucose Urine UA 4+ (Normal); Ketones Urine Negative (Negative); Leukocyte Esterase Urine Negative (Negative); Nitrate Urine Negative (Negative); Protein Urine 1+ (Negative); Urine Appearance Cloudy (CLEAR); Urine Color Yellow (Yellow); Urobilinogen Urine Norm (Negative); pH Urine 5 (5-7)
[2020-04-12 06:49] LABS: Add Urine Culture? No; Bacteria Urine 1+ /hpf; Sperm Urine 4+ /hpf; WBC Urine 0-4 /hpf (0-5)
[2020-04-12 06:50] LABS: Amphetamines Screen Urine Negative (Negative); Barbiturates Screen Urine Negative (Negative); Benzodiazepines Screen Urine Negative (Negative); Cocaine Screen Urine Negative (Negative); Opiate Screen Urine Negative (Negative); PCP Screen Urine Negative (Negative); THC Screen Urine Negative (Negative)
[2020-04-12 07:06] LABS: Lactic Sepsis W/Reflex 6.7 mmol/L (0.5-2.2)
--- NOTE | 2020-04-12 07:11 | ECG_ITS ---
[facility] Test Date: 2020-04-12 Pat Name: Orville Jang Department: Room: Gender: Male Stretching Machine Tender Frame: : 1960 Requested By: Aspen Go Order Number: [id number] Mónica MD: Gabino David M.D. Measurements Intervals [place] Rate: 144 P: 58 AK: 185 QRS: 22 QRSD: 145 T: 0 QT: 298 QTc: 462 Interpretive Statements Atrial flutter WITH FREQUENT VENTRICULAR PREMATURE COMPLEXES INTRAVENTRICULAR CONDUCTION DELAY [130+ ms QRS DURATION] Compared to ECG 02/01/2020 14:12:36 Intraventricular conduction delay now present Sinus rhythm no longer present Left ventricular hypertrophy no longer present Electronically Signed On 04-12-2020 19:50:05 RESEARCH RECRUITER by Gabino David M.D. [id number]
[2020-04-12 07:19] LABS: INR 1.09 (0.8-1.2)
--- NOTE | 2020-04-12 07:27 | XRR_ITS ---
PROCEDURE INFORMATION: Exam: XR Chest, 1 View Exam date and time: 04/12/2020 7:30 AM Age: 59 years old Clinical indication: Device placement; Ett placement (vent status); Additional info: Post code intubation TECHNIQUE: Imaging protocol: XR of the chest Views: 1 view. COMPARISON: CR XR chest 1V portable [id number] 04/12/2020 5:28 AM FINDINGS: Tubes, catheters and devices: An endotracheal tube and orogastric tube projects in satisfactory position. Lungs: There are diffuse bilateral pulmonary infiltrates which have not significantly changed since the previous examination from 04/12/2020. There is no new airspace consolidation. Pleural spaces: Unremarkable. No pleural effusion. No pneumothorax. Heart/Mediastinum: Unremarkable. No cardiomegaly. Bones/joints: Unremarkable. XR/XR chest 1V portable [id number] IMPRESSION: 1. Satisfactory position of the endotracheal tube and orogastric tube. 2. Stable diffuse bilateral pulmonary infiltrates.
[2020-04-12 07:52] LABS: Alveolar-Arterial Oxygen Gradi 59.2 mmHg (5-10); Arterial Blood Gas Hematocrit 45.2 % (42-52); Base Excess ABG -11.1 mmol/L (-2.0-2.0); Blood Gas Allen Test Pos; Blood Gas Operator Identificat AMH; Blood Gas Sample Site Radial, right; Blood Gas Sample Type Arterial; HCO3 ABG 22.6 mmol/L (22-26); HGB O2 Sat 95.6 % (95-100); Ionized Calcium Level - ABG 1.2 mmol/L (1.1-1.4); Methemoglobin 1.1 % (0.4-1.5); Oxygen Device AMBU; Oxygen Saturation ABG 97.6; Potassium Level - ABG 4.4 mmol/L (3.5-5.0); Total Hemoglobin 14.7 g/dL (14-18)
[2020-04-12] MEDS: heparin 5,000 unit/mL INJ 1 mL 6400 UNIT IVP (08:00)
[2020-04-12 08:26] LABS: Reflex Lactate Order REFLEX LACTIC ORDERD
[2020-04-12 08:36] LABS: Glucose Point of Care 445 mg/dL (70-110)
--- NOTE | 2020-04-12 09:14 | ECG_ITS ---
[facility] Test Date: 2020-04-12 Pat Name: Orville Jang Department: Room: Gender: Male Rewinder Operator: : 1960 Requested By: Joel Ozuna Order Number: [id number] Mónica MD: Gabino David M.D. Measurements Intervals [place] Rate: 169 P: [place]: QRS: 44 QRSD: 134 T: 8 QT: 278 QTc: 467 Interpretive Statements Possible atrial flutter with a 2:1 conduction RIGHT BUNDLE BRANCH BLOCK [120+ ms QRS DURATION, UPRIGHT V1, 40+ ms S IN I/aVL/V4/V5/V6] ST DEPRESSION, CONSIDER SUBENDOCARDIAL INJURY [0.1+ mV ST DEPRESSION] CRITICAL TEST RESULT Compared to ECG 02/01/2020 14:12:36 Right bundle-branch block now present ST (T wave) deviation now present Sinus rhythm no longer present Left ventricular hypertrophy no longer present Electronically Signed On 04-12-2020 19:53:51 HUMAN RESOURCE ADVISOR by Gabino David M.D. [email or web address] ([id number]
--- NOTE | 2020-04-12 09:15 | ECG_ITS ---
[facility] Test Date: 2020-04-12 Pat Name: Orville Jang Department: Room: Gender: Male Respiratory Therapy Instructor: : 1960 Requested By: Joel Ozuna Order Number: [id number] Mónica MD: Gabino David M.D. Measurements Intervals [place] Rate: 138 P: [place]: QRS: 15 QRSD: 145 T: -10 QT: 358 QTc: 543 Interpretive Statements ATRIAL FLUTTER/TACHYCARDIA WITH RAPID VENTRICULAR RESPONSE INTRAVENTRICULAR CONDUCTION DELAY [130+ ms QRS DURATION] Compared to ECG 04/12/2020 04:52:02 Intraventricular conduction delay now present Right bundle-branch block no longer present ST (T wave) deviation no longer present Electronically Signed On 04-12-2020 19:49:09 GOVERNMENT AFFAIRS SPECIALIST by Gabino David M.D. [id number]
[2020-04-12 10:42] LABS: ABG PCO2 93.2 mmHg (35-45); ABG PH Result 6.99 (7.35-7.45)
[2020-04-13 15:09] LABS: Coronavirus Test Green County DETECTED
[2020-04-13 17:09] LABS: SARS Covid-2 Antigen Positive (Negative)
== END 2020-04-12 09:10 | disposition expired ==
PROVIDERS: Family Medicine; Emergency Provider Family Medicine; PCP Family Medicine
DX: J84.9 Interstitial pulmonary disease, unspecified (principal); R73.9 Hyperglycemia, unspecified; R00.0 Tachycardia, unspecified; I26.99 Other pulmonary embolism without acute cor pulmonale; J96.22 Acute and chronic respiratory failure with hypercapnia; J96.21 Acute and chronic respiratory failure with hypoxia; F17.200 Nicotine dependence, unspecified, uncomplicated; G47.33 Obstructive sleep apnea (adult) (pediatric)
CPT/HCPCS: 12345; 36416; 36600; 51702; 71045; 80051; 80053; 80306; 81001; 82330; 82805; 82962; 83605; 83880; 84439; 84484; 85025; 85378; 85610; 87426; 87635; 93005; 94002; 94799; 96365; 96366; 96367; 96368; 99283; 99291; 99292; J1644; J2250; J2704; J2930; J3490; J7030